=== PATIENT | male | born 1975 | race Caucasian/White ===

== ENCOUNTER 2017-12-02 07:12 | Outpatient (CLI) | payer BC, SELFPAY ==
[2017-12-02 08:14] LABS: Abs Immature Grans 0.01 k/cumm (0.0-0.09); Absolute Basophil Count 0.01 k/cumm (0.0-0.2); Absolute Eosinophil Count 0.08 k/cumm (0.0-0.7); Absolute Lymphocyte Count 2.97 k/cumm (1.2-3.4); Absolute Monocyte Count 1.07 k/cumm (0.11-0.7); Absolute Neutrophil Count 3.34 k/cumm (1.2-6.7); Basophils % 0.1; Eosinophils % 1.1; HCT 45.1 % (40.0-50.0); HGB 14.3 g/dL (13.5-17.5); Immature Grans % 0.1; Lymphocytes % 39.7; Mean Corp. HGB Concentration 31.7 g/dL (32.0-36.0); Mean Corpuscular Hemoglobin 26.8 pg (27.0-33.0); Mean Corpuscular Volume 84.5 fL (80-95); Mean Platelet Volume 10.3 fL (8.0-11.0); Monocytes % 14.3; Neutrophils % 44.7; Platelet Count 288 x1000/uL (130-400); RBC 5.34 m/cumm (4.50-6.00); RBC Distribution Width 13.8 % (11.8-14.1); White Blood Cell Count 7.48 k/cumm (4.4-10.8)
[2017-12-02 08:38] LABS: ALT 35 U/L (12-78); AST 20 U/L (15-37); Albumin 3.6 g/dL (3.4-5.0); Alkaline Phosphatase 139 U/L (46-116); Anion Gap 11.1 mmol/L (3-11); BUN 16 mg/dL (7-18); Bilirubin, Total 0.3 mg/dL (0.2-1.0); CO2 25.9 mmol/L (21.0-32.0); CREATININE 1.19 mg/dL (0.70-1.30); Chloride 104 mmol/L (98-107); Cholesterol 191 mg/dL (50-200); Glucose 116 mg/dL (70-100); HDL Cholesterol 42 mg/dL (40-60); LDL CHOLESTEROL 116 mg/dL (<100); Potassium 4.8 mmol/L (3.5-5.1); Sodium 141 mmol/L (136-145); Total Protein 7.2 g/dL (6.4-8.2); Triglyceride 218 mg/dL (30-150)
[2017-12-02 09:01] LABS: Bilirubin, Direct 0.09 mg/dL (0.00-0.20); Creatine Kinase 179 U/L (39-308)
[2017-12-03 12:50] LABS: Sirolimus 8.2 ng/mL
== END 2017-12-02 07:32 ==
PROVIDERS: PCP Family Medicine; Visit Provider Nurse Practitioner Acute Care
DX: Z94.1 Heart transplant status (principal)
CPT/HCPCS: 36415; 80048; 80061; 80076; 82550; 83721; 80195; 85025

== ENCOUNTER 2018-05-26 10:16 | Outpatient (CLI) | payer BC, SELFPAY ==
--- NOTE | 2018-05-26 08:45 | DI.RAD_ITS ---
SYMPTOM/DIAGNOSIS: COUGH, R05 CHEST X-RAY: Comparison 04/24/14. Heart size is mildly enlarged but stable. Sternal wires are in place. The lungs show no focal consolidating infiltrates, effusions or pneumothoraces. The bones appear intact. IMPRESSION: No acute pulmonary process.
== END 2018-05-26 10:36 ==
PROVIDERS: PCP Family Medicine; Visit Provider Nurse Practitioner Family
DX: R05 Cough (principal); I51.7 Cardiomegaly
CPT/HCPCS: 71046

== ENCOUNTER 2019-07-28 02:31 | Outpatient (CLI) | payer BC, SELFPAY ==
[2019-07-28 08:28] LABS: Abs Immature Grans 0.02 k/cumm (0.0-0.09); Absolute Basophil Count 0.02 k/cumm (0.0-0.2); Absolute Eosinophil Count 0.16 k/cumm (0.0-0.7); Absolute Lymphocyte Count 3.72 k/cumm (1.2-3.4); Absolute Monocyte Count 1.16 k/cumm (0.11-0.7); Absolute Neutrophil Count 5.08 k/cumm (1.2-6.7); Basophils % 0.2; Eosinophils % 1.6; HCT 47.2 % (40.0-50.0); HGB 15.3 g/dL (13.5-17.5); Immature Grans % 0.2 %; Lymphocytes % 36.6; Mean Corp. HGB Concentration 32.4 g/dL (32.0-36.0); Mean Corpuscular Hemoglobin 26.6 pg (27.0-33.0); Mean Corpuscular Volume 82.1 fL (80-95); Mean Platelet Volume 10.1 fL (8.0-11.0); Monocytes % 11.4; Platelet Count 307 x1000/uL (130-400); RBC 5.75 m/cumm (4.50-6.00); RBC Distribution Width 14.6 % (11.8-14.1); White Blood Cell Count 10.16 k/cumm (4.4-10.8)
[2019-07-28 08:46] LABS: Hemoglobin A1C 6.2 % (3.8-5.6)
[2019-07-28 09:43] LABS: ALT 59 U/L (16-63); AST 31 U/L (15-37); Albumin 3.7 g/dL (3.4-5.0); Alkaline Phosphatase 165 U/L (46-116); Anion Gap 8.6 mmol/L (3-11); BUN 20 mg/dL (7-18); Bilirubin, Total 0.4 mg/dL (0.2-1.0); CO2 28.4 mmol/L (21.0-32.0); CREATININE 1.29 mg/dL (0.70-1.30); Calcium 9.6 mg/dL (8.5-10.1); Calculated LDL 113 mg/dL (<100); Chloride 100 mmol/L (98-107); Cholesterol 192 mg/dL (<200); Glucose 128 mg/dL (74-106); HDL Cholesterol 44 mg/dL (40-60); Potassium 4.7 mmol/L (3.5-5.1); Sodium 137 mmol/L (136-145); Total Protein 7.5 g/dL (6.4-8.2); Triglyceride 175 mg/dL (<150)
[2019-07-31 12:09] LABS: Sirolimus 7.7 ng/mL (See Note)
== END 2019-07-28 02:51 ==
PROVIDERS: PCP Family Medicine; Visit Provider Family Medicine
DX: Z94.1 Heart transplant status (principal); E78.5 Hyperlipidemia, unspecified; R73.03 Prediabetes; I10 Essential (primary) hypertension
CPT/HCPCS: 36415; 80053; 80061; 80195; 83036; 85025

== ENCOUNTER 2019-10-17 13:17 | Outpatient (REF) | payer BC, SELFPAY ==
[2019-10-19 15:35] LABS: SARS-CoV-2 RNA Undetected (Undetected); SARS-CoV-2 Specimen Source Nasopharynx
== END 2019-10-17 13:37 ==
LOC: NCHCN 13:17
PROVIDERS: PCP Family Medicine; Visit Provider Nurse Practitioner Family
DX: Z11.59 Encounter for screening for other viral diseases (principal)
CPT/HCPCS: U0003

== ENCOUNTER 2019-10-18 04:02 | Outpatient (CLI) | payer BC, SELFPAY ==
[2019-10-18 11:05] LABS: Abs Immature Grans 0.04 10^3/uL (0.0-0.06); Absolute Basophil Count 0.03 10^3/uL (0.0-0.2); Absolute Eosinophil Count 0.06 10^3/uL (0.0-0.7); Absolute Lymphocyte Count 2.09 10^3/uL (1.2-3.4); Absolute Monocyte Count 0.81 10^3/uL (0.1-0.8); Basophils % 0.3; Eosinophils % 0.6; HCT 44.3 % (40.0-50.0); HGB 14.3 g/dL (13.5-17.5); Immature Grans % 0.4; Lymphocytes % 19.7; MCH 27.1 pg (27.0-33.0); MCHC 32.3 % (32.0-36.0); MCV 83.9 fL (80-95); MPV 10.6 fL (8.0-11.0); Monocytes % 7.6; Neutrophils % 71.4; Nucleated RBC 0 %; Platelet Count 319 10^3/uL (130-400); RBC 5.28 10^6/uL (4.36-5.78); RDW 13.5 % (11.8-14.1); RDW-SD 41.6 fL; WBC 10.63 10^3/uL (4.4-10.8)
[2019-10-18 11:18] LABS: Prothrombin Time 9.9 sec (9.3-11.0)
[2019-10-18 12:02] LABS: ALT 46 U/L (16-63); AST 23 U/L (15-37); Albumin 3.9 g/dL (3.4-5.0); Alkaline Phosphatase 122 U/L (46-116); Anion Gap 8.4 mmol/L (3-11); BUN 19 mg/dL (7-18); Bilirubin, Direct 0.14 mg/dL (0.00-0.20); Bilirubin, Total 0.4 mg/dL (0.2-1.0); CO2 27.6 mmol/L (21.0-32.0); CREATININE 1.17 mg/dL (0.70-1.30); Chloride 102 mmol/L (98-107); Glucose 134 mg/dL (74-106); Potassium 5.1 mmol/L (3.5-5.1); Sodium 138 mmol/L (136-145); Total Protein 7.6 g/dL (6.4-8.2)
[2019-10-18 12:20] LABS: Calculated LDL 103 mg/dL (<100); Cholesterol 174 mg/dL (<200); HDL Cholesterol 50 mg/dL (40-60); Triglyceride 106 mg/dL (<150)
[2019-10-19 12:11] LABS: Sirolimus 6.3 ng/mL (See Note)
== END 2019-10-18 04:22 ==
PROVIDERS: PCP Family Medicine; Visit Provider Family Medicine
DX: Z94.1 Heart transplant status (principal)
CPT/HCPCS: 36415; 80048; 80061; 80076; 80195; 85025; 85610

== ENCOUNTER 2021-02-28 02:36 | Outpatient (CLI) | payer BC, SELFPAY ==
[2021-02-28] MEDS: Normal Saline Flush 10 ML SYR IVP (09:51)
[2021-02-28] MEDS: Normal Saline 500 ML 30 ML IV (09:51)
[2021-02-28 09:58] VITALS: BP 159/98; PULSE 87; RESP 18; TEMP 36.4; O2SAT 98
[2021-02-28 10:01] VITALS: BP 129/84; PULSE 90; RESP 18; TEMP 37.1; O2SAT 96
[2021-02-28 10:22] VITALS: BP 120/83; PULSE 85; RESP 16; TEMP 36.9; O2SAT 95
[2021-02-28 10:46] VITALS: BP 124/84; PULSE 89; RESP 16; TEMP 37; O2SAT 96
[2021-02-28 11:09] VITALS: BP 126/85; PULSE 92; RESP 18; TEMP 36.9; O2SAT 95
== END 2021-02-28 02:37 | disposition home or self-care (01) ==
LOC: INF 02:36
PROVIDERS: PCP Family Medicine; Visit Provider Family Medicine
DX: U07.1 COVID-19 (principal)
CPT/HCPCS: 96365

== ENCOUNTER 2021-06-18 10:54 | Outpatient (REF) | payer BC, SELFPAY ==
[2021-06-18 17:08] LABS: ALT 47 U/L (16-63); AST 27 U/L (15-37); Albumin 3.8 g/dL (3.4-5.0); Alkaline Phosphatase 138 U/L (46-116); Anion Gap 10.2 mmol/L (3-11); BUN 20 mg/dL (7-18); Bilirubin, Total 0.5 mg/dL (0.2-1.0); CO2 26.8 mmol/L (21.0-32.0); Calcium 9.6 mg/dL (8.5-10.1); Calculated LDL 96 mg/dL (<100); Chloride 104 mmol/L (98-107); Cholesterol 181 mg/dL (<200); Glucose 126 mg/dL (74-106); HDL Cholesterol 41 mg/dL (40-60); Potassium 4.2 mmol/L (3.5-5.1); Sodium 141 mmol/L (136-145); Total Protein 7.3 g/dL (6.4-8.2); Triglyceride 223 mg/dL (<150)
[2021-06-19 10:40] LABS: Hepatitis C Ab w Rflx HCV PCR Negative (Negative)
[2021-06-19 11:08] LABS: HIV-1/2 Ag & Ab Screen Negative (Negative)
[2021-06-20 12:51] LABS: Sirolimus 13.8 ng/mL (See Note)
== END 2021-06-18 10:55 | disposition home or self-care (01) ==
LOC: NCHCN 10:54
PROVIDERS: PCP Family Medicine; Visit Provider Family Medicine
DX: E78.5 Hyperlipidemia, unspecified (principal); R73.03 Prediabetes; I10 Essential (primary) hypertension; Z94.1 Heart transplant status; Z11.59 Encounter for screening for other viral diseases; Z11.4 Encounter for screening for human immunodeficiency virus [HIV]
CPT/HCPCS: 80053; 80061; 86803; 87389; 80195

== ENCOUNTER 2021-08-15 15:56 | Outpatient (REF) | payer BC, SELFPAY ==
[2021-08-17 15:42] LABS: COVID-19 RT-PCR UVMMC Result Negative (Negative)
== END 2021-08-15 15:57 | disposition home or self-care (01) ==
LOC: LBN 15:56
PROVIDERS: PCP Family Medicine; Visit Provider Physician Assistant Medical
DX: Z20.822 Contact with and (suspected) exposure to COVID-19 (principal); R09.89 Other specified symptoms and signs involving the circulatory and respiratory systems
CPT/HCPCS: U0003

== ENCOUNTER 2021-10-14 03:26 | Outpatient (CLI) | payer BC, SELFPAY ==
[2021-10-14 08:41] LABS: Abs Immature Grans 0.02 10^3/uL (0.0-0.06); Absolute Basophil Count 0.04 10^3/uL (0.0-0.2); Absolute Lymphocyte Count 3.55 10^3/uL (1.2-3.4); Absolute Monocyte Count 1.29 10^3/uL (0.1-0.8); Absolute Neutrophil Count 4.21 10^3/uL (1.2-6.7); Basophils % 0.4; Eosinophils % 1.1; HCT 44.9 % (40.0-50.0); HGB 14.3 g/dL (13.5-17.5); Immature Grans % 0.2; Lymphocytes % 38.5; MCH 26.8 pg (27.0-33.0); MCHC 31.8 % (32.0-36.0); MCV 84 fL (80-95); MPV 10.2 fL (8.0-11.0); Neutrophils % 45.8; Platelet Count 306 10^3/uL (130-400); RBC 5.33 10^6/uL (4.36-5.78); RDW 13.4 % (11.8-14.1); RDW-SD 41.4 fL; WBC 9.21 10^3/uL (4.4-10.8)
[2021-10-14 08:57] LABS: Prothrombin Time 9.8 sec (9.3-11.0)
[2021-10-14 08:59] LABS: ALT 41 U/L (16-63); AST 21 U/L (15-37); Albumin 3.6 g/dL (3.4-5.0); Alkaline Phosphatase 134 U/L (46-116); Anion Gap 9.1 mmol/L (3-11); BUN 23 mg/dL (7-18); Bilirubin, Total 0.5 mg/dL (0.2-1.0); CO2 24.9 mmol/L (21.0-32.0); CREATININE 1.3 mg/dL (0.70-1.30); Calcium 9.4 mg/dL (8.5-10.1); Calculated LDL 89 mg/dL (<100); Chloride 101 mmol/L (98-107); Cholesterol 201 mg/dL (<200); Estimated GFR 59.97 (mL/min/1.73m2); Glucose 127 mg/dL (74-106); HDL Cholesterol 49 mg/dL (40-60); Potassium 4.5 mmol/L (3.5-5.1); Sodium 135 mmol/L (136-145); Total Protein 7.4 g/dL (6.4-8.2); Triglyceride 319 mg/dL (<150)
[2021-10-14 09:05] LABS: Hemoglobin A1C 6.5 % (<5.7)
[2021-10-14 13:57] LABS: Bilirubin, Direct 0.1 mg/dL (0.0-0.2)
[2021-10-15 12:15] LABS: Sirolimus 9.2 ng/mL (See Note)
== END 2021-10-14 03:27 | disposition home or self-care (01) ==
LOC: LBO 03:27
PROVIDERS: PCP Family Medicine; Visit Provider Family Medicine
DX: I10 Essential (primary) hypertension (principal); E78.5 Hyperlipidemia, unspecified; C64.2 Malignant neoplasm of left kidney, except renal pelvis; Z94.1 Heart transplant status; R73.03 Prediabetes
CPT/HCPCS: 36415; 80048; 80061; 80076; 80195; 83036; 85025; 85610

== ENCOUNTER 2022-09-21 01:40 | Outpatient (CLI) | payer BC, SELFPAY ==
--- NOTE | 2022-09-21 | DI.CT_ITS ---
Exam(s) CT ABDOMEN WO/W EXAM: CT ABDOMEN WO/W CLINICAL HISTORY: RENAL CELL CARCINOMA C64.2. TECHNIQUE: Imaging Protocol: Axial computed tomography images with coronal and sagittal reformatted images were created and reviewed CONTRAST MATERIAL: Intravenous: 100 cc Omnipaque 350 Oral: None COMPARISON: CT CT ABDOMEN/PELVIS (GI) WITH CONTRAST from 10/23/2015 CT ABD/PELVIS WO W CONTRAST from 11/27/2016 FINDINGS: VISUALIZED LUNG BASES: Mild increased markings noted in the anterior basal segment of the left lower lobe.. Sternotomy wires evident. ABDOMEN: There is no ascites. Small hiatal hernia noted. LIVER: Small benign-appearing 4 millimeter hypodensity in the lateral aspect of the right hepatic lob e is probably a tiny cyst or benign hemangioma. No other focal hepatic lesions evident. GALLBLADDER/BILIARY: No obvious gallbladder pathology. CBD is not dilated. PANCREAS: No evidence of pancreatic mass nor dilatation of the pancreatic duct. SPLEEN: Small residual subcapsular hematoma noted. ADRENALS: There are no significant adrenal masses. KIDNEYS:There are multiple cysts in both kidneys noted, these being more prominent and numerous in th e left kidney. Ranging in size up to 5.5 x 4.4 by 4.5 cm. These have significantly increased in siz e and number. These appear to be simple benign cysts. There are no solid renal masses. There is al so a nonobstructive calculus in the upper pole left kidney measuring 3 mm. On the minute delay imagi ng there are no consistent filling defects within the renal pelves.. The infundibulum I are splayed over the larger CIS in the left kidney. There is a single nondilated ureter seen in each side of the abdomen. No duplication evident. Lower ureters are not included in the field of view nor is urinar y bladder. ABDOMINAL AORTA: Abdominal aorta is not enlarged. LYMPH NODES: There is no retroperitoneal nor paraaortic adenopathy. ABDOMINAL WALL: No evidence of significant anterior abdominal wall nor inguinal hernia. GI: There is no evidence of bowel obstruction, free air, nor abscess. OSSEOUS: No fractures. No significant osseous lesions. IMPRESSION: 1. Compared to prior CT scans (most recent being 2016) there has been increase in size and number of benign cysts in left kidney, ranging in size up to 5.5 cm. However, there are no solid lesions seen in the left kidney. Smaller benign cysts are noted in the right kidney. No solid lesions in the rig ht kidney. No adenopathy. 2. Solitary nondilated ureter on each side. No filling defects within the visualized ureters. Pleas e note that the lower ureters and urinary bladder are not included in the field of view of this abdom en only CT study. 3. Other findings as above. RADIATION DOSE DELIVERED: 1,634.76mGy.cm Total DLP DATA REPOSITORY: All CT scans at this facility are submitted to the National Radiology Data Registry (NRDR) Dose Index Registry (DIR) with the [employer] (ACR). RADIATION OPTIMIZATION: All CT scans at this facility use at least one of these dose optimization te chniques: automated exposure control; mA and/or kV adjustment per patient size (includes targeted exa ms where dose is matched to clinical indication); or iterative reconstruction.
[2022-09-21 08:45] LABS: Abs Immature Grans 0.04 10^3/uL (0.0-0.06); Absolute Basophil Count 0.02 10^3/uL (0.0-0.2); Absolute Lymphocyte Count 3.49 10^3/uL (1.2-3.4); Absolute Monocyte Count 0.89 10^3/uL (0.1-0.8); Absolute Neutrophil Count 4.85 10^3/uL (1.2-6.7); Basophils % 0.2; Eosinophils % 1.1; HCT 49.2 % (40.0-50.0); HGB 15.7 g/dL (13.5-17.5); Immature Grans % 0.4; Lymphocytes % 37.2; MCHC 31.9 % (32.0-36.0); MCV 85 fL (80-95); MPV 10.1 fL (8.0-11.0); Monocytes % 9.5; Neutrophils % 51.6; Platelet Count 287 10^3/uL (130-400); RBC 5.81 10^6/uL (4.36-5.78); RDW-SD 42.6 fL; WBC 9.39 10^3/uL (4.4-10.8)
[2022-09-21] MEDS: Normal Saline Flush 10 ML SYR IVP (08:59)
[2022-09-21] MEDS: Omnipaque 350 MG/ML 500 ML BTL-Imaging package IJ (09:03)
[2022-09-21 09:04] LABS: ALT 69 U/L (16-63); AST 38 U/L (15-37); Albumin 3.6 g/dL (3.4-5.0); Alkaline Phosphatase 139 U/L (46-116); Anion Gap 11.3 mmol/L (3-11); BUN 27 mg/dL (7-18); Bilirubin, Total 0.6 mg/dL (0.2-1.0); CO2 23.7 mmol/L (21.0-32.0); CREATININE 1.1 mg/dL (0.70-1.30); Calcium 9.6 mg/dL (8.5-10.1); Calculated LDL 100 mg/dL (<100); Chloride 103 mmol/L (98-107); Cholesterol 192 mg/dL (<200); Estimated GFR 84.37 (mL/min/1.73m2); Glucose 165 mg/dL (74-106); HDL Cholesterol 48 mg/dL (40-60); Magnesium 1.7 mg/dL (1.8-2.4); Potassium 5.2 mmol/L (3.5-5.1); Sodium 138 mmol/L (136-145); Total Protein 7.7 g/dL (6.4-8.2); Triglyceride 220 mg/dL (<150)
[2022-09-21] MEDS: Normal Saline - Diluent 50 ML VIAL IJ (09:04)
[2022-09-21 09:24] LABS: Bilirubin Negative (Negative); Blood Negative (Negative); Clarity Clear (Clear); Glucose Negative (Negative); Ketones Negative (Negative); Leukocyte Esterase Negative (Negative); Nitrite Negative (Negative); Specific Gravity 1.025 (1.005-1.025); Urobilinogen 0.2 mg/dL (Up to 0.2)
[2022-09-21 09:30] LABS: Bacteria Negative HPF (Negative); C & S Indicated? No; Casts 0-2 Hyaline LPF (Negative); Crystals Negative HPF (Negative); Epithelial Cells Rare HPF (Negative); Mucus Negative (Negative); RBC Negative HPF (0-2); WBC Negative HPF (0-5)
[2022-09-21 09:38] LABS: COMMENT (LAB VIEW ONLY) 152.47 mg/dL; PROTEIN 49.6 mg/dL; Prot/Crea Ur Ratio 0.32
[2022-09-23 12:24] LABS: Sirolimus 7.8 ng/mL (See Note)
[2022-09-23 19:02] LABS: Cystatin C, S 1.16 mg/L; eGFR by Cystatin C 68 mL/min/BSA (>60)
== END 2022-09-21 02:00 ==
LOC: DI 01:40
PROVIDERS: Nurse Practitioner; PCP Family Medicine; Visit Provider Family Medicine
DX: C64.2 Malignant neoplasm of left kidney, except renal pelvis (principal); R91.8 Other nonspecific abnormal finding of lung field; K44.9 Diaphragmatic hernia without obstruction or gangrene; K76.89 Other specified diseases of liver; N28.1 Cyst of kidney, acquired; N20.0 Calculus of kidney; Z94.1 Heart transplant status; E78.2 Mixed hyperlipidemia; R79.89 Other specified abnormal findings of blood chemistry; R82.998 Other abnormal findings in urine
CPT/HCPCS: 80053; 80061; 82610; 74170; 80195; 81003; 81015; 82565; 83735; 84156; 85025

== ENCOUNTER 2023-11-08 18:11 | Outpatient (REF) | payer BC, SELFPAY ==
[2023-11-08 20:03] LABS: HCT 47.2 % (40.0-50.0); MCH 26.9 pg (27.0-33.0); MCHC 31.8 % (32.0-36.0); MCV 85 fL (80-95); MPV 11.2 fL (8.0-11.0); Platelet Count 301 10^3/uL (130-400); RBC 5.58 10^6/uL (4.36-5.78); RDW 13.9 % (11.8-14.1); WBC 10.38 10^3/uL (4.4-10.8)
[2023-11-08 20:05] LABS: COMMENT (LAB VIEW ONLY) 240.43 mg/dL; Microalb ug/mg Crea 107.9 ug/mg Cr
[2023-11-08 20:21] LABS: ALT 38 U/L (16-63); AST 22 U/L (15-37); Alkaline Phosphatase 154 U/L (46-116); Anion Gap 14.6 mmol/L (3-11); BUN 24 mg/dL (7-18); Bilirubin, Total 0.39 mg/dL (0.2-1.0); CO2 18.4 mmol/L (21.0-32.0); CREATININE 1.5 mg/dL (0.70-1.30); Calcium 10.1 mg/dL (8.5-10.1); Chloride 104 mmol/L (98-107); Estimated GFR 57.79 (mL/min/1.73m2); FREE T4 1.23 ng/dL (0.76-1.46); Glucose 125 mg/dL (74-106); Sodium 137 mmol/L (136-145); Total Protein 7.8 g/dL (6.4-8.2)
[2023-11-08 20:33] LABS: Calculated LDL 101 mg/dL (<100); Cholesterol 173 mg/dL (<200); HDL Cholesterol 46 mg/dL (40-60); Triglyceride 131 mg/dL (<150)
[2023-11-08 21:08] LABS: Hemoglobin A1C 6.9 % (<5.7)
[2023-11-09 00:01] LABS: TSH 0.85 uIU/Ml (0.36-3.74)
[2023-11-09 19:27] LABS: PSA, Screening 9.6 ng/mL (<=2.5)
== END 2023-11-08 18:12 | disposition home or self-care (01) ==
LOC: NCHCN 18:11
PROVIDERS: PCP Family Medicine; Visit Provider Family Medicine
DX: E11.9 Type 2 diabetes mellitus without complications (principal); Z12.5 Encounter for screening for malignant neoplasm of prostate; Z94.1 Heart transplant status; E78.5 Hyperlipidemia, unspecified
CPT/HCPCS: 80053; 80061; 84153; 85027; 80195; 82043; 82570; 83036; 84439; 84443

== ENCOUNTER 2024-03-01 16:30 | Outpatient (CLI) | payer BC, SELFPAY ==
[2024-03-01 15:55] LABS: Abs Immature Grans 0.02 10^3/uL (0.0-0.06); Absolute Basophil Count 0.02 10^3/uL (0.0-0.2); Absolute Eosinophil Count 0.02 10^3/uL (0.0-0.7); Absolute Lymphocyte Count 2.96 10^3/uL (1.2-3.4); Absolute Monocyte Count 0.89 10^3/uL (0.1-0.8); Absolute Neutrophil Count 6.27 10^3/uL (1.2-6.7); Basophils % 0.2 %; Eosinophils % 0.2 %; HCT 49.5 % (40.0-50.0); HGB 15.4 g/dL (13.5-17.5); Immature Grans % 0.2 %; Lymphocytes % 29.1 %; MCH 26.3 pg (27.0-33.0); MCHC 31.1 % (32.0-36.0); MCV 85 fL (80-95); MPV 9.6 fL (8.0-11.0); Monocytes % 8.7 %; Neutrophils % 61.6 %; Platelet Count 355 10^3/uL (130-400); RBC 5.86 10^6/uL (4.36-5.78); RDW-SD 43.1 fL; WBC 10.18 10^3/uL (4.4-10.8)
[2024-03-01 16:08] LABS: Prothrombin Time 10.1 sec (9.1-11.1)
--- OUTSIDE RECORDS SUMMARY | 2024-03-01 16:32 | XMS_ITS | Encounter Summary ---
Author Organization [facility] [place] [address] Care Team Providers Care Operational Communication Chief Name Role Phone Siri Ram MD Primary Care Provider [phone] Reason for Visit * Reason Onset Date Comments Follow-up 03/25/2020 RHC/LHC Scheduli ng Encounter Details Date Type Department Care Team (Late st Contact Info) Description 03/25/2020 [place] [id number] Mary Edmonds, RN Follow-up (RHC/LHC Scheduling) Social History Tobacco Use Types Packs/Day Years Used Date Smoking Tobacco: Never Smokeless Tobacco: Never Sex and Gender Information Value Date Recorded Sex Assigned at Not on file Gender Identity Not on file Sexual Orientation Not on file documented as of this encounter Miscellaneous Notes * Telephone Encounter - Mary Edmonds, RN - 03/25/2020 3:40 PM ESTSummary: RHC/LHC Scheduling [facility] Care Coordination of Cardiac F/U: History: 44 year old, S/P Transplant 09/2005 [facility] [place] to adri[place]. Last C 11/2016. LVEF 67% Transplant Medications Prednisone Mycophenalate Sirolimus [Goal 6-8] Sirolimus Level 03/22/2020 5mg Daily 500mg BID 1mg Daily 6.3 on 10/16/[address] Nolasco visit plan: Plan: 1. RHC/LHC, ? EMBx pending [facility] preference : ORDER information to [facility] in scheduling, with Dr. Ni. 2. Will discuss role for DSE with [facility] based on their protocol (suspect next year in alternating fashion) 3. Check sirolimus level on day of cath, trough goal 6-8 4. Continue crestor 10mg QD 5. F/u HbA1c given chronic prednisone 6. Will d/w [facility] whether to arrange his other annual follow up here (derm, DEXA, etc) or whether that should be done at [facility] Telephone call with Ruperto: ORDER information to [facility] in scheduling, with Dr. Ni. To relay order to scheduling, and anticipate a call in the next week or so, with aim for schedulingin 1-2 weeks. Plan for Sirolimus level that day also. Has Team Number to call if any questions or concerns. I will be in touch as soon as I learn date/time. documented in this encounter Plan of Treatment Not on file documented as of this encounter Visit Diagnoses Not on filedocumented in this encounter Care Teams Operational Communication Chief Relationship Specialty Start Date End Date Siri Ram MD [address] [place] [address] PCP - General Family Medicine 06/28/15 documented as of this encounter
--- OUTSIDE RECORDS SUMMARY | 2024-03-01 16:32 | XMS_ITS | Encounter Summary ---
Author Organization [facility] Address [facility] [place] [address] Care Team Providers Care Jewelry Coater Name Role Phone Siri Ram MD Primary Care Provider [phone] Reason for Visit * Consultation (Routine) - Specialty Diagnoses / Procedures Referred By Contac t Referred To Contact Cardiology Diagnoses Heart transplant status HX OF HEART TRANSPLANT Siri Ram MD [address] [place] [address] [address] Kristi Breen MD [facility] [place] [address] Referral ID Status Reason Start Date Expiration Date V isits Requested Visits Authorized [id number] Consult, Test & Treat [facility] PCP Updated and/or Approved 11/30/2019 05/29/2020 6 6 Encounter Details Date Type Department Care Team (Late st Contact Info) Description 03/22/2020 10:20 AM EST Office Visit Cardiology at [address] [address] Kristi Breen MD History of heart transplant (Primary Dx) Social History Tobacco Use Types Packs/Day Years Used Date Smoking Tobacco: Never Smokeless Tobacco: Never Sex and Gender Information Value Date Recorded Sex Assigned at Not on file Gender Identity Not on file Sexual Orientation Not on file documented as of this encounter Last Filed Vital Signs Vital Sign Reading Time Taken Comments Blood Pressure 122/74 03/22/2020 10:26 AM EST Pulse 88 03/22/2020 10:26 AM EST Temperature - - Respiratory Rate - - Oxygen Saturation 98% 03/22/2020 10:26 AM EST Inhaled Oxygen Concentration - - Weight 101 kg (222 lb 9.6 oz) 03/22/2020 10:26 A M EST Height 180.3 cm (5' 11) 03/22/2020 10:26 AM EST Body Mass Index 31.05 03/22/2020 10:26 AM EST documented in this encounter Progress Notes * Kristi Breen MD - 03/22/2020 10:20 AM EST [facility] Note Name: Ruperto Ellis Date: 03/22/2020 Chief Complaint: s/p OHT History of Present Illness 44 y.o. 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 He is 14 years post transplant and presents today to establish care. He was scheduled for coronary angiogram in 12/02 at [facility], but this has been postponed due to concernsregarding coronavirus. 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 His last DSE was done in November 2017 demonstrated normal graft function with LVEF of 67% and no segmental wall motion abnormalities. He had normal wall thickness with no segmental wall abnormalities. RVSF unable to be calculated. With peak stress, he had no new wall motion abnormalities or evidence of ischemic changes. His last coronary angiogram from November 2016 was with stable coronaries, he has a mid RCA focal 25% stenosis in the mid third. Previous to this coronary angiogram, his coronaries had been clean and there was no evidence of disease. He has had no recent biopsies as he is >5 years out from transplant. 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 He denies s/sx of HF. He deniesLH/dizziness or palps c/f arrhythmia. He is NYHA I-II and euvolemic. He denies any recent infectious symptoms and is practicing COVID precautions. Review of Systems All other 12 point review of systems negative except as noted above. 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 mycophenolate (CELLCEPT) 500 mg Tablet Take 500 mg by mouth 2 times daily. ??? omeprazole (PriLOSEC) 40 mg Capsule, Delayed Release(E.C.) Take 40 mg by mouth daily. ??? prazosin (Minipress) 2 mg Capsule Take 2 mg by mouth 3 times daily. ??? carvediloL (Coreg) 25 mg Tablet Take 25 mg by mouth 2 times daily. ??? sirolimus (Rapamune) 1 mg Tablet Take 1 mg by mouth daily. ??? predniSONE (Deltasone) 5 mg Tablet Take 5 mg by mouth daily. ??? rosuvastatin (Crestor) 10 mg Tablet Take 10 mg by mouth daily. Allergies Allergies Allergen Reactions ??? Amiodarone Anaphylaxis and Other (See Comments) see comment; allergic to IV version only, tolerates PO; Social & Family History TOB: Social History Tobacco Use Smoking Status Never Smoker Smokeless Tobacco Never Used ETOH: Social History Substance and Sexual Activity Alcohol Use None 03/22/2020 Illicits: Social History Substance and Sexual Activity Drug Use Not on file FHx: No family history on file. Physical Exam Vitals: 03/22/20 1026 BP: 122/74 Pulse: 88 SpO2: 98% Weight: 101 kg (222 lb 9.6 oz) Height: 180.3 cm (5' 11) General: NAD Neck: JVP not elevated Cardiac: RRR w/o mrg Lungs: CTAB Abdomen: Soft NT/ND Extremities: WWP w/ no sig LE edema Relevant Labs WBC 11, HCT 46, PLT 252 K 4.1, Cre 1.08 INR 1.0 LFT WNL LDL 96 Relevant CardiacStudies NSR at a rate of 87, QRS 82, QTC 413, R axis, RSR' pattern Assessment: Ruperto Ellis is a 44 y.o. male with a past medical history of OHT in 2005 c/b RCC requiring partial nephrectomy now on pred 5, cellcept 500mg BID and sirolimus 1mg PO QD with a goal 6-8 who presents to the advanced heart disease clinic to establish care. He would like to continue to see [facility] for his annual transplant testing and visits but does not wantto go down now d/t COVID. We will arrange a RHC/LHC for him here. I do not think he will need a biopsy, but the patient thinks he might, so I will reach out to [facility]. I cannot find a medial reaons why he would need one at this point but happy to reach out and ask. Will check his sirolimus level on the day of cath. Will TBW [facility] and see if they want a repeat DSE now or in future. His last was in 2017 as best I cantell from the [facility] records. Otherwise, he is doing well. His lipids are well controlled on crestor 10mg QD. He will need annualderm and DEXA given that he remains on prednisone. I will coordinate with [facility] and see if it makes sense for him to get those things here or there. Plan: 1. RHC/LHC, ? EMBx pending [facility] preference 2. Will discuss role for DSE with [facility] based on their protocol (suspect next year in alternating fashion) 3. Check sirolimus level on day of cath, trough goal 6-8 4. Continue crestor 10mg QD 5. F/u HbA1c given chronic prednisone 6. Will d/w [facility] whether to arrange his other annual follow up here (derm, DEXA, etc) or whether that should be done at [facility] RTC in 12 months with transplant labs This clinic visit lasted 35 minutes, of which 30 minutes were spent in direct discussion and counseling with the patient. Kristi Nolasco MD MPH Advanced [facility] Disease [facility] Cardiac Transplant Attending 03/22/2020, 2:49 PM documented in this encounter Plan of Treatment Not on file documented as of this encounter Procedures Procedure Name Priority Date/Time Associated Diagnosis Comments EKG 12-LEAD Routine 03/22/2020 10:20 AM EST History of heart transplant documented in this encounter Results * EKG 12 Lead (03/22/2020 10:20 AM EST) Ventricular rate 87 BPM MUSE SYSTEM Atrial Rate 87 BPM MUSE SYSTEM P-R Interval 174 ms MUSE SYSTEM QRS Duration 82 ms MUSE SYSTEM Q-T Interval 344 ms MUSE SYSTEM QTC Calculated (Bezet) 413 ms MUSE SYSTEM Calculated P Lequire 13 degrees MUSE SYSTEM Calculated R Lequire 91 degrees MUSE SYSTEM Calculated T Lequire 79 degrees MUSE SYSTEM INTERPRETATION Normal sinus rhythm Rightward axis RSR' or QR pattern in V1 suggests right ventricular conduction delay Borderline ECG When compared with ECG of 11-JUN-2005 18:33, Sinus rhythm has replaced Electronic ventricular pacemaker Confirmed by MD Bear Daniel ([id number]) on 03/22/2020 3:37:35 PM MUSE SYSTEM 03/22/2020 10:2 0 AM EST 03/22/2020 3:37 PM EST Kristi Burr MD ECG ORDERABL ES MUSE SYSTEM * (ABNORMAL) Hemoglobin A1c (03/22/2020 9:44 AM EST) Hemoglobin A1c 6.6(H) 4.3 - 5.6 % [facility] Comment: Reference Range: 4.3 - 5.6% 5.7 - 6.4% - Increased Risk of Developing Diabetes Mellitus >= 6.5% - Consistent with diagnosis of Diabetes Mellitus In the absence of hyperglycemia (i.e. plasma glucose > 200 mg/dL) or classic symptoms of hyperglycemia a repeat measurement of HbA1c should be performed on a separate sample to confirm the diagnosis. Diagnosis and Classification of Diabetes Mellitus, Diabetes Care 2013; 36: Suppl. 1, Y98-81 Estimated Average Glucose 142 mg/dL [facility] Comment: eAG equivalents for HbA1c percentages: HbA1c(%) ?eAG(mg/dL) 6.0 ?126 6.5 ?140 7.0 ?154 7.5 ?169 8.0 ?183 8.5 ?197 9.0 ?212 9.5 ?226 10.0 ? 240 Limitations: The eAG calculation has not been validated on women, individuals below 18 years old and above 70 years old, and individuals with hemoglobinopathies. Additional resources are available on the ADA website. Anders DREW, Magda J, Giselle R, et al. ??Translating the A1C assay into estimated average glucose values. ??Diabetes Care 2008:31(8):0419-8592. Blood specimen (specimen) 03/22/2020 9:44 AM EST 03/22/2020 11:03 AM EST Narrative Resulting Agency Comment Spec In Lab Kristi Burr MD CHEMISTRY OR DERABLES [facility] [place] [address] * Prothrombin Time (03/22/2020 9:44 AM EST) Prothrombin Time 11.3 9.4 - 12.[address] [facility] International Normalization Ratio 1.0 [facility] Comment: An INR <2.0 indicates adequate procoagulant activity for hemostasis in most patients without underlying bleeding disorders, though the INR may not adequately reflect hemostatic capacity in patients with liver disease and synthetic impairment. The recommended target INR range for therapeutic anticoagulation is 2.0 ? 3.0 for most applications, though lower and higher ranges may be appropriate depending on clinical circumstances. Blood specimen (specimen) 03/22/2020 9:44 AM EST 03/22/2020 11:03 AM EST Narrative Resulting Agency Comment Spec In Lab Kristi Burr MD HEMATOLOGY O RDERABLES [facility] [place] [address] * (ABNORMAL) Digoxin level (03/22/2020 9:44 AM EST) Digoxin <0.3(L) 0.9 - 2.0 mcg/L [facility] Blood specimen (specimen) 03/22/2020 9:44 AM EST 03/22/2020 11:03 AM EST Narrative Resulting Agency Comment Spec In Lab Kristi Burr MD CHEMISTRY OR DERABLES Performing Organization Address [facility]/ZIP Co de Phone Number [facility] [place] [address] * Tacrolimus level (03/22/2020 9:44 AM EST) Tacrolimus <0.8 ng/mL [facility] Comment: Please be advised that as of 03/19/2020 the methodology for tacrolimus testing has changed from a liquid chromatography tandem mass spectrometry platform to an electrochemiluminescence immunoassay format. Less than sign not attached to original result. Please be advised that as of 03/19/2020 the methodology for tacrolimus testing has changed from a liquid chromatography tandem mass spectrometry platform to an electrochemiluminescence immunoassay format. Corrected from 0.8 ng/ml [NA] on 06/14/20 17:17:53 EDT by Sylwia Rondon Blood specimen (specimen) 03/22/2020 9:44 AM EST 03/22/2020 11:03 AM EST Narrative Resulting Agency Comment Spec In Lab Kristi Burr MD CHEMISTRY OR DERABLES Performing Organization Address City/[facility]/ZIP Co de Phone Number [facility] [place] [address] * TSH [place] (03/22/2020 9:44 AM EST) Thyroid Stimulating Hormone 0.94 0.27 - 4.20 mcIU/mL [facility] Blood specimen (specimen) 03/22/2020 9:44 AM EST 03/22/2020 11:03 AM EST Narrative Resulting Agency Comment Spec In Lab Kristi Burr MD CHEMISTRY OR DERABLES [facility] [place] [address] * Lipid Panel (Reflex Direct LDL) (03/22/2020 9:44 AM EST) Cholesterol, Total 180 mg/dL [facility] Comment: Lower Risk: <200 mg/dL Average Risk: 200-239 mg/dL Higher Risk: >ix=707 mg/dL Triglyceride 226 mg/dL [facility] Comment: Average Risk/Lower Risk: <150 mg/dL Borderline High Risk: 150-199 mg/dL High Risk: 200-499 mg/dL Very High Risk: >ix=710 mg/dL HDL Cholesterol 39 mg/dL [facility] Comment: Males: ?? Higher Risk: <40 mg/dL Females: ?? HIgher Risk: <50 mg/dL LDL Cholesterol 96 mg/dL [facility] Comment: Lowest Risk: <100 mg/dL Lower Risk: 100-129 mg/dL Borderline High Risk: 130-159 mg/dL High Risk: 160-189 mg/dL Very High Risk: >na=962 mg/dL Cholesterol/HDL Ratio 4.[address] [facility] Lipid Interpretation See Note [facility] Comment: Lipid management should be guided by a patient? s ASCVD risk, goals and preferences. ACC/AHA Guidelines recommend high intensity statin if clinical ASCVD or LDL greater than or equal to 190 mg/dL. http://tinyurl.com/UVW-UMM-Qxyodtfal Adults aged 40-75 with LDL 70-189 mg/dL should have their 10 year ASCVD risk estimated with the ACC/AHA ASCVD risk collet gluer http://tools.acc.org/OFNMS-Kycx-Ktmlfwubd/ Statin should be discussed if risk greater than or equal to 7.5% in non-diabetics. With diabetes, moderate intensity statin is recommended if risk less than 7.5%, high intensity if risk greater than or equal to 7.5%. Annual lipid monitoring on statins is not necessary. Evaluate secondary causes of Triglycerides greater than 500 mg/dL or LDL greater than 190 mg/dL: See table 6 of ACC/AHA Guideline. Lifestyle modification is a critical component of ASCVD risk reduction. Blood specimen (specimen) 03/22/2020 9:44 AM EST 03/22/2020 11:03 AM EST Narrative Resulting Agency Comment Spec In Lab Kristi Burr MD CHEMISTRY OR DERABLES Performing Organization Address [facility] Co de Phone Number [facility] [place] [address] * Hepatic Function Panel (03/22/2020 9:44 AM EST) [facility] Protein, Total 7.3 6.1 - 8.0 gm/dL [facility] Albumin 4.3 3.2 - 5.2 gm/dL [facility] Aspartate Aminotransferase 22 0 - 39 unit/L [facility] Alanine Aminotransferase 34 0 - 55 unit/L [facility] Alkaline Phosphatase 129 40 - 130 unit/L [facility] Bilirubin, Total 0.5 0.2 - 1.3 mg/dL [facility] Bilirubin, Direct 0.1 0.0 - 0.3 mg/dL [facility] Blood specimen (specimen) 03/22/2020 9:44 AM EST 03/22/2020 11:03 AM EST Narrative Resulting Agency Comment Spec In Lab Kristi Burr MD CHEMISTRY OR DERABLES Performing Organization Address [facility] Co de Phone Number [facility] [place] [address] * Basic Metabolic Panel (non-fasting) (03/22/2020 9:44 AM EST) Glucose 161 65 - 199 mg/dL [facility] Comment:Diabetes: >=200 mg/d L plus symptoms Blood Urea Nitrogen 16 10 - 20 mg/dL [facility] Creatinine 1.08 0.80 - 1.50 mg/dL [facility] Sodium 137 135 - 145 mmol/L [facility] Potassium 4.1 3.5 - 5.0 mmol/L [facility] Comment: Please note: ??Patients with WBC >100,000 may have falsely elevated Potassium levels. ??For accurate Potassium quantification in these patients send serum separator tube (gold top) for subsequent determinations. ??Contact the Clinical Chemistry Laboratory if there are any questions. Chloride 102 98 - 107 mmol/L [facility] Carbon Dioxide 23 22 - 31 mmol/L [facility] Anion Gap 12 5 - 15 mmol/L [facility] Calcium 9.8 8.5 - 10.5 mg/dL [facility] Est Glomerular Filtration Rate 84 >=60 mL/min/1. 73 m?? [facility] Comment: This patient? s estimated glomerular filtration rate (eGFR) is between 84 mL/min/1.73 m2 (patients with less muscle mass per kg body weight) and 98 mL/min/1.73 m2 (patients with more muscle mass per kg body weight) as determined by the CKD-EPI equation. Assessment of eGFR is not appropriate when creatinine concentrations are rapidly changing. For clinical decisions where creatinine clearance will affect therapy, a 24-hour urine creatinine clearance may be advised. Assignment of CKD stage 1 ? 5 for patients with an eGFR near the transition point between stages may be based on clinical assessment of muscle mass and symptoms in addition to eGFR. Blood specimen (specimen) 03/22/2020 9:44 AM EST 03/22/2020 11:03 AM EST Narrative Resulting Agency Comment Spec In Lab Kristi Burr MD CHEMISTRY OR DERABLES [facility] [place] [address] documented in this encounter Visit Diagnoses Diagnosis History of heart transplant- Primary Heart replaced by transplant documented in this encounter Care Teams Jewelry Coater Relationship Specialty Start Date End Date Siri Ram MD Peg [address] [facility] [address] [place] [address] PCP - General Family Medicine 06/28/15 documented as of this encounter
--- OUTSIDE RECORDS SUMMARY | 2024-03-01 16:32 | XMS_ITS | Encounter Summary ---
[place] [address] Care Team Providers Care Medicaid Nurse Name Role Phone Siri Ram MD Primary Care Provider [phone] Encounter Details Date Type Department Care Team (Latest Contact Info) Description 03/22/2020 9:20 AM EST Laboratory Appointment Lab [address] [place] [address] History of heart transplant Social History Tobacco Use Types Packs/Day Years Used Date Smoking Tobacco: Never Smokeless Tobacco: Never Sex and Gender Information Value Date Recorded Sex Assigned at Not on file Gender Identity Not on file Sexual Orientation Not on file documented as of this encounter Plan of Treatment Not on file documented as of this encounter Procedures Procedure Name Priority Date/Time Associated Diagnosis Comments HC THYROID STIMULATING HORMONE, SERUM STAT 03/22/2020 9:44 AM EST History of heart transplant HEMOGRAM STAT 03/22/2020 9:44 AM EST History of heart transplant DIFFERENTIAL, AUTOMATED STAT 03/22/2020 9:44 AM EST History of heart transplant HC [id number] (TACROLIMUS) STAT 03/22/2020 9:44 AM EST History of heart transplant HC PROTHROMBIN TIME STAT 03/22/2020 9 :44 AM EST History of heart transplant HC CBC,PLT & AUTO DIFF STAT 03/22/2020 9:44 AM EST History of heart transplant HC HEMOGLOBIN A1C STAT 03/22/2020 9:4 4 AM EST History of heart transplant HC DIGOXIN, SERUM STAT 03/22/2020 9:4 4 AM EST History of heart transplant HEPATIC FUNCTION PANEL STAT 03/22/2020 9:44 AM EST History of heart transplant HC VENIPUNCTURE Routine 03/22/2020 9:44 AM EST History of heart transplant BASIC METABOLIC PANEL STAT 03/22/2020 9:44 AM EST History of heart transplant documented in this encounter Results * (ABNORMAL) Differential, Automated (03/22/2020 9:44 AM EST) Neutrophil % 70.0 % [facility] Neutrophil Absolute 7.83(H) 1.70 - 6.10 x10(3)/mc L [facility] Lymph % 21.3 % [facility] Lymphocytes Abs 2.4 0.9 - 3.2 x10(3)/mc L [facility] Monocyte % 7.5 % [facility] Monocyte Abs 0.8 0.3 - 0.9 x10(3)/mc L [facility] Eos % 0.6 % [facility] Eosinophils Abs 0.1 0.0 - 0.4 x10(3)/mc L [facility] Basophil % 0.2 % [facility] Baso Absolute 0.0 0.0 - 0.1 x10(3)/mc L [facility] Immature Gran % 0.40 % [facility] Comment: Immature granulocytes(IG's)percentage and absolute count will include metamyelocytes, myelocytes, and promyelocytes. Blood smears from CBCs yielding IG's will be scanned manually for concordance. If this scan disagrees with the automated IG or if promyelocytes are noted, a manual differential will be performed. Immature Gran Absolute 0.05(H) 0.00 - 0.04 x10(3)/ L [facility] Blood specimen (specimen) 03/22/2020 9:44 AM EST 03/22/2020 11:03 AM EST Narrative Resulting Agency Comment Spec In Lab Kristi Burr MD HEMATOLOGY O RDERABLES [facility] [place] [address] * (ABNORMAL) Hemogram (03/22/2020 9:44 AM EST) White Blood Cell 11.2(H) 4.0 - 9.5 x10(3)/[facility] Red Blood Cell 5.55(H) 4.58 - 5.54 x10(6)/[facility] Hemoglobin 14.7 13.7 - 16.5 gm/dL [facility] Hematocrit 45.9 40.5 - 48.5 % [facility] Mean Cell Volume 82.7(L) 82.9 - 93.1 fL [facility] Mean Cell Hemoglobin 26.5(L) 27.5 - 32.1 pg [facility] Mean Cell Hemoglobin Concentration 32.0 32.0 - 35.7 gm/dL [facility] Platelet 252 145 - 357 x10(3)/[facility] RDW Standard Deviation 40.8 36.0 - 45.0 [facility] RDW coefficient of variation 13.5 11.4 - 13.8 % [facility] Mean Platelet Volume 10.5 7.6 - 12.9 [facility] NRBC% auto 0.0 % [facility] NRBC Absolute 0.000 0.000 - 0.000 x10(3)/[facility] Blood specimen (specimen) 03/22/2020 9:44 AM EST 03/22/2020 11:03 AM EST Narrative Resulting Agency Comment Spec In Lab Kristi Burr MD HEMATOLOGY O RDERABLES [facility] [place] [address] * Basic Metabolic Panel (non-fasting) (03/22/2020 9:44 AM EST) Glucose 161 65 - 199 mg/dL [facility] Comment:Diabetes: >=200 mg/d L plus symptoms Blood Urea Nitrogen 16 10 - 20 mg/dL [facility] Creatinine 1.08 0.80 - 1.50 mg/dL [facility] Sodium 137 135 - 145 mmol/L [facility] Potassium 4.1 3.5 - 5.0 mmol/L [facility] Comment: Please note: ??Patients with WBC >100,000 may have falsely elevated Potassium levels. ??For accurate Potassium quantification in these patients send serum separator tube (gold top) for subsequent determinations. ??Contact the Clinical Chemistry Laboratory if there are any questions. Chloride 102 98 - 107 mmol/L [facility] Carbon Dioxide 23 22 - 31 mmol/L [facility] Anion Gap 12 5 - 15 mmol/L [facility] Calcium 9.8 8.5 - 10.5 mg/dL [facility] Est Glomerular Filtration Rate 84 >=60 mL/min/1. 73 m?? [facility] Comment: This patient? s estimated [...] MD CHEMISTRY OR DERABLES Performing Organization Address [facility] Co de Phone Number [facility] [place] [address] * Hepatic Function Panel (03/22/2020 9:44 AM EST) Protein, Total 7.3 6.1 - 8.0 gm/dL [facility] Albumin 4.3 3.2 - 5.2 gm/dL [facility] Aspartate Aminotransferase 22 0 - 39 unit/L [facility] Alanine Aminotransferase 34 0 - 55 unit/L [facility] Alkaline Phosphatase 129 40 - 130 unit/L [facility] Bilirubin, Total 0.5 0.2 - 1.3 mg/dL [facility] Bilirubin, Direct 0.1 0.0 - 0.3 mg/dL [facility] Blood specimen (specimen) 03/22/2020 9:44 AM EST 03/22/2020 11:03 AM EST Narrative Resulting Agency Comment Spec In Lab Kristi Burr MD CHEMISTRY OR DERABLES Performing Organization Address [facility] Co de Phone Number [facility] [place] [address] * Lipid Panel (Reflex Direct LDL) (03/22/2020 9:44 AM EST) Cholesterol, Total 180 mg/dL [facility] Comment: Lower Risk: <200 mg/dL Average Risk: 200-239 mg/dL Higher Risk: >mv=611 mg/dL Triglyceride 226 mg/dL [facility] Comment: Average Risk/Lower Risk: <150 mg/dL Borderline High Risk: 150-199 mg/dL High Risk: 200-499 mg/dL Very High Risk: >yu=113 mg/dL HDL Cholesterol 39 mg/dL [facility] Comment: Males: ?? Higher Risk: <40 mg/dL Females: ?? HIgher Risk: <50 mg/dL LDL Cholesterol 96 mg/dL [facility] Comment: Lowest Risk: <100 mg/dL Lower Risk: 100-129 mg/dL Borderline High Risk: 130-159 mg/dL High Risk: 160-189 mg/dL Very High Risk: >in=436 mg/dL Cholesterol/HDL Ratio 4.6 ratio [facility] Lipid Interpretation See Note [facility] Comment: Lipid management should be guided by a patient? s ASCVD risk, goals and preferences. ACC/AHA Guidelines recommend high intensity statin if clinical ASCVD or LDL greater than or equal to 190 mg/dL. [email or web address]-[email or web address] Adults aged 40-75 with LDL 70-189 mg/dL should have their 10 year ASCVD risk estimated with the ACC/AHA ASCVD risk acid patroller http://tools.acc.org/NDKFC-Mnav-Mrflrnehp/ Statin should be discussed if risk greater [...] Lab Kristi Burr MD CHEMISTRY OR DERABLES [facility] [place] [address] * TSH [place] (03/22/2020 9:44 AM EST) Thyroid Stimulating Hormone 0.94 0.27 - 4.20 mcIU/mL [facility] Blood specimen (specimen) 03/22/2020 9:44 AM EST 03/22/2020 11:03 AM EST Narrative Resulting Agency Comment Spec In Lab Kristi Burr MD CHEMISTRY OR DERABLES Performing Organization Address [facility] Co de Phone Number [facility] [place] [address] * Tacrolimus level (03/22/2020 9:44 AM EST) Tacrolimus <0.8 ng/mL [facility] Comment: Please be advised that [...] MD CHEMISTRY OR DERABLES Performing Organization Address [facility] Co de Phone Number [facility] [place] [address] * (ABNORMAL) Digoxin level (03/22/2020 9:44 AM EST) Digoxin <0.3(L) 0.9 - 2.0 mcg/L [facility] Blood specimen (specimen) 03/22/2020 9:44 AM EST 03/22/2020 11:03 AM EST Narrative Resulting Agency Comment Spec In Lab Kristi Burr MD CHEMISTRY OR DERABLES Performing Organization Address [facility] de Phone Number [facility] [place] [address] * Prothrombin Time (03/22/2020 9:44 AM EST) Pathologist [facility] Prothrombin Time 11.3 9.4 - 12.5 sec [facility] International Normalization Ratio 1.0 [facility] Comment: An INR <2.0 indicates [...] Lab Kristi Burr MD HEMATOLOGY O RDERABLES Performing Organization Address [facility] de Phone Number [facility] [place] [address] * (ABNORMAL) Hemoglobin A1c (03/22/2020 9:44 AM EST) Pathologist [facility] Hemoglobin A1c 6.6(H) 4.3 - 5.6 % [facility] Comment: Reference Range: 4.3 - [...] Mellitus, Diabetes Care 2013; 36: Suppl. 1, S67-74 Estimated Average Glucose 142 mg/dL [facility] Comment: eAG equivalents for HbA1c [...] into estimated average glucose values. ??Diabetes Care 2008:31(8):6381-4255. Blood specimen (specimen) 03/22/2020 9:44 AM EST 03/22/2020 11:03 AM EST Narrative Resulting Agency Comment Spec In Lab Kristi Burr MD CHEMISTRY OR DERABLES Performing Organization Address City/State/[facility] Co de Phone Number [facility] [place] [address] documented in this encounter Visit Diagnoses Diagnosis History of heart transplant Heart replaced by transplant documented in this encounter Care Teams Medicaid Nurse Relationship Specialty Start Date End Date Siri Ram MD [address] [place] [address] PCP - General Family Medicine 06/28/15 documented as of this encounter
--- OUTSIDE RECORDS SUMMARY | 2024-03-01 16:32 | XMS_ITS | Encounter Summary ---
Author Organization [facility] Address [address] [place] [address] Care Team Providers Care Product Delivery Specialist Name Role Phone Gil Schwartz MD Primary Care Provider [phone] Encounter Details Date Type Department Care Team (Late st Contact Info) Description 08/15/2021 Lab Requisition [facility] Pathology & Laboratory Medicine - [address] [address] Outr Resulting Lab, Provider Social History Tobacco Use Types Packs/Day Years Used Date Smoking Tobacco: Never Assessed Sex and Gender Information Value Date Recorded Sex Assigned at Not on file Legal Sex Male 18:34 EST Gender Identity Not on file Sexual Orientation Not on file documented as of this encounter Plan of Treatment Not on file documented as of this encounter Procedures Procedure Name Priority Date/Time Associated Diagnosis Comments ZZCOVID-19 TEST [facility] PCR Today 08/15/2021 15:40 EDT COVID-19 TESTING Routine 08/15/2021 15:4 0 EDT documented in this encounter Results * COVID-19 TEST [facility] PCR (08/15/2021 15:40 EDT) Swab 08/15/2021 15:4 0 EDT 08/16/2021 21:31 EDT us Provider Outr Resulting Lab MICROBIOLOGY - GENER AL ORDERABLES Final Result [facility] [address] [place] [address] * COVID-19 TESTING (08/15/2021 15:40 EDT) COVID-19 rt-PCR Result Negative Negative 08/17/2021 15:37 EDT [facility] Comment: This test has not been FDA cleared or approved. This test has been authorized by FDA under an EUA for use by authorized laboratories. This test has been authorized only for detection of nucleic acid from 2019-nCoV, not for any other viruses or pathogens. This test is only authorized for the duration of the declaration that circumstances exist justifying the authorization of emergency use of in vitro diagnostic tests for detection and/or diagnosis of 2019-nCoV under section 564(b)(1) of Act, 21 U.S.C ?? 360bbb-3(b) (1), unless the authorization is terminated or revoked sooner. Negative results do not preclude 2019-nCoV infection and should not be used as the sole basis for treatment or other patient management decisions. Negative results must be combined with clinical observations, patient history, and epidemiological information. Testing was performed using the yanelis SARS-CoV-2 assay ([employer] on the Yanelis 6800 System Performing Lab Yanelis [address] [facility] Lab 08/17/2021 15:37 EDT [facility] Swab 08/15/2021 15:4 0 EDT 08/16/2021 21:31 EDT us Provider Outr Resulting Lab MICROBIOLOGY - GENER AL ORDERABLES Final Result [facility] [address] [place] [address] documented in this encounter Visit Diagnoses Not on filedocumented in this encounter Care Teams Product Delivery Specialist Relationship Specialty Start Date End Date Gil Schwartz MD PCP - General 01/23/15 documented as of this encounter
--- OUTSIDE RECORDS SUMMARY | 2024-03-01 16:32 | XMS_ITS | Referral Summary ---
Author Organization [facility] Address [address] [place] [address] Care Team Providers Care Automotive Sales Professional Name Role Phone Gil Schwartz MD Primary Care Provider [phone] Social History Tobacco Use Types Packs/Day Years Used Date Smoking Tobacco: Never Assessed Sex and Gender Information Value Date Recorded Sex Assigned at Not on file Legal Sex Male 18:34 EST Gender Identity Not on file Sexual Orientation Not on file Plan of Treatment Not on file Procedures Procedure Name Priority Date/Time Associated Diagnosis Comments HEPATITIS C AB W REFLEX TO HCV RNA BY PCR Routine 06/18/2021 8:49 EDT from Last 3 Months or Most Recently Relevant to Health Maintenance Results * HEPATITIS C AB W REFLEX TO HCV RNA BY PCR (06/18/2021 8:49 EDT) Hep C Antibody Negative Negative 06/19/2021 10:35 EDT [facility] Blood VENOUS BLOOD / Unknown 06/18/2021 8:49 EDT 06/18/2021 21:20 EDT us Provider Outr Resulting Lab CHEMISTRY & BLOOD GA S ORDERABLES Final Result [facility] [address] [place] [address] from Last 3 Months or Most Recently Relevant to Health Maintenance Care Teams Automotive Sales Professional Relationship Specialty Start Date End Date Gil Schwartz MD PCP - General 01/23/15
--- OUTSIDE RECORDS SUMMARY | 2024-03-01 16:32 | XMS_ITS | Encounter Summary ---
Author Organization [facility] Address [address] [place] [address] Care Team Providers Care Rigging Up Worker Name Role Phone Gil Schwartz MD Primary Care Provider [phone] Encounter Details Date Type Department Care Team (Late st Contact Info) Description 10/14/2021 Lab Requisition [facility] Pathology & Laboratory Medicine - [facility] [address] [place] [address] Outr Resulting Lab, Provider Social History Tobacco [...] Procedure Name Priority Date/Time Associated Diagnosis Comments SIROLIMUS Routine 10/14/2021 8:23 EDT documented in this encounter Results * SIROLIMUS (10/14/2021 8:23 EDT) Sirolimus 9.2 See Note ng/mL 10/15/2021 12:11 EDT [facility] Comment: NOTE: Sirolimus Therapeutic Range: 4-10 ng/mL (The goal level is based on clinical context). Assayed utilizing [employer]rose Chemiluminescent technology. ??Values obtained using different assay methods cannot be used interchangeably. Blood VENOUS BLOOD / Unknown 10/14/2021 8:23 EDT 10/14/2021 16:58 EDT us Provider Outr Resulting Lab CHEMISTRY & BLOOD GA S ORDERABLES Final Result [facility] [address] [place] [address] documented in this encounter Visit Diagnoses Not on filedocumented in this encounter Care Teams Rigging Up Worker Relationship Specialty Start Date End Date Gil Schwartz MD PCP - General 01/23/15 documented as of this encounter
--- OUTSIDE RECORDS SUMMARY | 2024-03-01 16:32 | XMS_ITS | Encounter Summary ---
Author Organization [facility] Address [address] [place] [address] Care Team Providers Care Education And Outreach Coordinator Name Role Phone Gil Schwartz MD Primary Care Provider [phone] Encounter Details Date Type Department Care Team (Late st Contact Info) Description 06/18/2021 Lab Requisition [facility] Pathology & Laboratory Medicine - [facility] [address] [place] [address] Outr Resulting Lab, Provider Social History Tobacco [...] Priority Date/Time Associated Diagnosis Comments SIROLIMUS Routine 06/18/2021 8:49 EDT HEPATITIS C AB W REFLEX TO HCV RNA BY PCR Routine 06/18/2021 8:49 EDT documented in this encounter Results * SIROLIMUS (06/18/2021 8:49 EDT) Sirolimus 13.8 See Note ng/mL 06/20/2021 12:45 EDT [facility] Comment: NOTE: Therapeutic range is dependent on the clinical situation. Assayed utilizing [employer]rose Chemiluminescent technology. ??Values obtained using different assay methods cannot be used interchangeably. Blood VENOUS BLOOD / Unknown 06/18/2021 8:49 EDT 06/18/2021 21:20 EDT us Provider Outr Resulting Lab CHEMISTRY & BLOOD GA S ORDERABLES Final Result Performing Organization Address City/[facility] [address]/[facility] Co de Phone Number [facility] [address] [place] [address] * HEPATITIS C AB W REFLEX TO HCV RNA BY PCR (06/18/2021 8:49 EDT) Hep C Antibody Negative Negative 06/19/2021 10:35 EDT [facility] Blood VENOUS BLOOD / Unknown 06/18/2021 8:49 EDT 06/18/2021 21:20 EDT us Provider Outr Resulting Lab CHEMISTRY & BLOOD GA S ORDERABLES Final Result Performing Organization Address [facility] [address]/[facility] de Phone Number [facility] [address] [place] [address] documented in this encounter Visit Diagnoses Not on filedocumented in this encounter Care Teams Education And Outreach Coordinator Relationship Specialty Start Date End Date Gil Schwartz MD PCP - General 01/23/15 documented as of this encounter
--- OUTSIDE RECORDS SUMMARY | 2024-03-01 16:32 | XMS_ITS | Encounter Summary ---
Author Organization [facility] Address [address] [place] [address] Care Team Providers Care Windows Deployment Technician Name Role Phone Gil Schwartz MD Primary Care Provider [phone] Encounter Details Date Type Department Care Team (Late st Contact Info) Description 10/18/[address] [facility] Pathology & Laboratory Medicine - [facility] [address] [place] [address] Outr Resulting Lab, Provider Social History Tobacco [...] Priority Date/Time Associated Diagnosis Comments SIROLIMUS Routine 10/18/2019 10:45 EDT documented in this encounter Results * SIROLIMUS (10/18/2019 10:45 EDT) Sirolimus 6.3 See Note ng/mL 10/19/2019 12:07 EDT [facility] Comment: NOTE: Therapeutic range is dependent on the clinical situation. Assayed utilizing [employer] Chemiluminescent technology. ??Values obtained using different assay methods cannot be used interchangeably. Blood VENOUS BLOOD / Unknown 10/18/2019 10:45 EDT 10/18/2019 16:13 EDT us Provider Outr Resulting Lab CHEMISTRY & BLOOD GA S ORDERABLES Final Result [facility] [address] [place] [address] documented in this encounter Visit Diagnoses Not on filedocumented in this encounter Care Teams Windows Deployment Technician Relationship Specialty Start Date End Date Gil Schwartz MD PCP - General 01/23/15 documented as of this encounter
--- OUTSIDE RECORDS SUMMARY | 2024-03-01 16:32 | XMS_ITS | Clinical Summary ---
Author Organization [facility] Address [address] [place] [address] Care Team Providers Care Assistant Technician Name Role Phone Gil Schwartz MD Primary Care Provider Social History Tobacco Use Types Packs/Day Years Used Date Smoking Tobacco: Never Assessed Sex and Gender Information Value Date Recorded Sex Assigned at Not on file Legal Sex Male 18:34 EST Gender Identity Not on file Sexual Orientation Not on file Plan of Treatment Health Maintenance Due Date Last Done Comments Hepatitis B Vaccine (1 of - 19+ 3-dose series) 07/29 COVID-19 Vaccine ( season) 2023 Hepatitis C Screen Completed 06/18/2021 Procedures Procedure Name Priority Date/Time Associated Diagnosis Comments HEPATITIS C AB W REFLEX TO HCV RNA BY PCR Routine 06/18/2021 8:49 EDT from Last 3 Months or Most Recently Relevant to Health Maintenance Results * HEPATITIS C AB W REFLEX TO HCV RNA BY PCR (06/18/2021 8:49 EDT) Hep C Antibody Negative Negative 06/19/2021 10:35 EDT [facility] Blood VENOUS BLOOD / Unknown 06/18/2021 8:49 EDT 06/18/2021 21:20 EDT us Provider Outr Resulting Lab CHEMISTRY & BLOOD GA S ORDERABLES Final Result [facility] [address] [place] [address] from Last 3 Months or Most Recently Relevant to Health Maintenance Care Teams Assistant Technician Relationship Specialty Start Date End Date Gil Schwartz MD PCP - General 01/23/15
--- OUTSIDE RECORDS SUMMARY | 2024-03-01 16:32 | XMS_ITS | Encounter Summary ---
Author Organization [facility] Address [address] [place] [address] Care Team Providers Care Manpower Development Advisor Name Role Phone Unavailable Primary Care Provider Unavailabl e Encounter Details Date Type Department Care Team (Late st Contact Info) Description 05/08/2004 15:51 EST Hospital Encounter [facility] [address] [place] [address] Chase Lovett MD PhD [address] [facility] Level [address] [place] [id number] Social History Tobacco Use Types Packs/Day Years [...]
--- OUTSIDE RECORDS SUMMARY | 2024-03-01 16:32 | XMS_ITS | Encounter Summary ---
Author Organization [facility] [place] [address] Care Team Providers Care Roving Can Tender Name Role Phone Siri Ram MD Primary Care Provider [phone] Reason for Visit * Reason Onset Date Comments Follow-up 04/05/2020 Scheduled RHC/LH C 04/17/2020 Encounter Details Date Type Department Care Team (Late st Contact Info) Description 04/05/2020 Telephone [place] [address] Mary Edmonds, RN Follow-up (Scheduled RHC/LHC 04/17/2020) Social History Tobacco Use Types Packs/Day Years Used Date Smoking Tobacco: Never Smokeless Tobacco: Never Sex and Gender Information Value Date Recorded Sex Assigned at Not on file Gender Identity Not on file Sexual Orientation Not on file documented as of this encounter Miscellaneous Notes * Telephone Encounter - Mary Edmonds RN - 04/05/2020 1:54 PM ESTSummary: Scheduled RHC/LHC 04/17/2020 Voicemails left on home and cell: date/time for RHC/LHC for 04/17/2020 Arrive SDS 0730 Procedure 0830 NPO after Midnight. On no anticoagulant and not diabetic. Rosa called this morning with date/time and unable to reach him, leaving messages. I let her know I left messages also and will be sure to connect with him next week. I will verify with Dr. Nolasco that he is or is not to have a Cardiac Biopsy also. documented in this encounter Plan of Treatment Not on file documented as of this encounter Visit Diagnoses Not on filedocumented in this encounter Care Teams Roving Can Tender Relationship Specialty Start Date End Date Siri Ram MD [facility] [address] [place] [address] PCP - General Family Medicine 06/28/15 documented as of this encounter
--- OUTSIDE RECORDS SUMMARY | 2024-03-01 16:32 | XMS_ITS | Encounter Summary ---
Author Organization [facility] [place] [address] Care Team Providers Care Director Digital Strategy Name Role Phone Siri Ram MD Primary Care Provider [phone] Reason for Visit * Reason Onset Date Comments Follow-up 05/21/2020 Cardiac Transpla nt follow-up call Encounter Details Date Type Department Care Team (Late st Contact Info) Description 05/21/2020 Telephone [place] [address] Mary Edmonds, RN Follow-up (Cardiac Transplant follow-up call) Social History Tobacco Use Types Packs/Day Years Used Date Smoking Tobacco: Never Smokeless Tobacco: Never Sex and Gender Information Value Date Recorded Sex Assigned at Not on file Gender Identity Not on file Sexual Orientation Not on file documented as of this encounter Miscellaneous Notes * Telephone Encounter - Mary Edmonds, RN - 05/21/2020 11:25 AM ESTSummary: Cardiac Transplant follow-up call Continuing [place] call for Care Coordination: Justin relays: I am all set - and have a plan.You all helped in between during COVID. But I will be asking [facility] if I can come see Dr. Nolasco annually. Justin's PLAN: Every 3 months seeing or talking with someone. [facility]: did call to offeCOVID Vaccine but he was not ready yet. Signed up and will get the Vaccine in [place] soon. PCP: June 2020. Sirolimus level at PCP in June. [facility] September 2020. CT to follow a nodule in his lung, come September Derm [facility] D[facility]A locally in [facility] To call if any questions, concerns or new issues. To update us on his plan, will aware his word. documented in this encounter Plan of Treatment Not on file documented as of this encounter Visit Diagnoses Not on filedocumented in this encounter Care Teams Director Digital Strategy Relationship Specialty Start Date End Date Siri Ram MD [facility] [address] [place] [address] PCP - General Family Medicine 06/28/15 documented as of this encounter
--- OUTSIDE RECORDS SUMMARY | 2024-03-01 16:32 | XMS_ITS | Encounter Summary ---
[place] [address] Care Team Providers Care Commercial Internship Name Role Phone Siri Ram MD Primary Care Provider [phone] Encounter Details Date Type Department Care Team (Late st Contact Info) Description 06/28/2023 Notes Only Cardiology at [address] [phone] Leyla Terry, RN Social History Tobacco Use Types Packs/Day Years Used Date Smoking Tobacco: Never Smokeless Tobacco: Never Sex and Gender Information Value Date Recorded Sex Assigned at Not on file Gender Identity Not on file Sexual Orientation Not on file documented as of this encounter Progress Notes * Leyla Terry RN - 06/28/2023 10:48 AM EDT Following review with Dr. Howe and of Care Everyone in [facility]: Pt receiving Transplant Care [facility]. documented in this encounter Plan of Treatment Not on file documented as of this encounter Visit Diagnoses Not on filedocumented in this encounter Care Teams Commercial Internship Relationship Specialty Start Date End Date Siri Ram MD [facility] [address] [place] [id number] PCP - General Family Medicine 06/28/15 documented as of this encounter
--- OUTSIDE RECORDS SUMMARY | 2024-03-01 16:32 | XMS_ITS | Encounter Summary ---
Author Organization [facility] Address [address] [place] [address] Care Team Providers Care Frame Hand Name Role Phone Unavailable Primary Care Provider Unavailabl e Encounter Details Date Type Department Care Team (Late st Contact Info) Description 02/14/2004 14:01 EST Hospital Encounter [facility] [address] [place] [address] Chase Lovett MD PhD [address] [facility] [address] [place] [id number] Discharge Disposition: Auto Discharge Social History Tobacco Use Types Packs/Day Years Used Date Smoking Tobacco: Never Assessed Sex and Gender Information Value Date Recorded Sex Assigned at Not on file Legal Sex Male 18:34 EST Gender Identity Not on file Sexual Orientation Not on file documented as of this encounter Discharge Disposition Disposition Code Departure Means Destination Auto Discharge documented in this encounter Plan of Treatment Not on file documented as of this encounter Visit Diagnoses Not on filedocumented in this encounter
--- OUTSIDE RECORDS SUMMARY | 2024-03-01 16:32 | XMS_ITS | Encounter Summary ---
[place] [address] Care Team Providers Care Sign Language Interpreter Name Role Phone Siri Ram MD Primary Care Provider Reason for Visit * Auth/Cert Specialty Diagnoses / Procedures Referred By Ron t Referred To Contact Diagnoses History of heart transplant [Z94.1] Procedures PRG CATH PLMT LEFT HEART CATH & ARTS W/INJ & ANGIO IMG S&I PRG RIGHT HEART CATH O2 SATURATION & CARDIAC OUTPUT PRG LEFT HEART CATH W/INJ L VENTRICULOGRAPHY IMG S&I CARDIAC CATHETERIZATION RIGHT AND LEFT HEART CATH Referral ID Status Reason Start Date Expiration Date Visits Re quested Visits Authorized [id number] 1 1 Encounter Details Date Type Department Care Team (Late st Contact Info) Description 04/17/2020 8:30 AM EST - 04/17/2020 9:15 AM EST Surgery [place] [address] Umberto Ni MD [facility] [place] [address] CARDIAC CATHETERIZATION Social History Tobacco Use Types Packs/Day Years Used Date Smoking Tobacco: Never Smokeless Tobacco: Never Sex and Gender Information Value Date Recorded Sex Assigned at Not on file Gender Identity Not on file Sexual Orientation Not on file documented as of this encounter Last Filed Vital Signs Vital Sign Reading Time Taken Comments Blood Pressure 141/100 04/17/2020 9:15 AM EST Pulse 82 04/17/2020 9:15 AM EST Temperature 36.6 ??C (97.8 ??F) 04/17/2020 7:58 AM ES T Respiratory Rate - - Oxygen Saturation 96% 04/17/2020 9:15 AM EST Inhaled Oxygen Concentration - - Weight 98.8 kg (217 lb 12.8 oz) 04/17/2020 7:00 AM EST Height 180.3 cm (5' 10.98) 04/17/2020 7:[address] Body Mass Index 30.39 04/17/2020 7:00 AM EST documented in this encounter Discharge Instructions * Discharge Instructions* Jennifer Christine RN - 04/17/2020 11:33 AM EST Radial Access for Heart Cath Activity If you are discharged the same day as your procedure, do not drive yourself home. Arrange to have another person drive. You may walk around when you get home, but keep your activity at a minimum until the morning. Try to avoid bending your wrist for the first 12-24 hours after the procedure to allow the artery to fully heal. Do not participate in active sports for 48 hours. Do not lift anything greater than 5 lbs. You may engage in sexual activity after 48 hours. Catheter Insertion Area Care Take the dressing off of the catheter insertion site the morning following the procedure. Leave thesite open to air. If the site is oozing you may cover it with a band aid. You may take a shower if you wish. Look for signs of infection over the next several days. It is uncommon to have any visible blood at the site, any obvious bleeding is abnormal. A bruise around the wrist or small lump under the skin is normal: they generally disappear in 3-5 days. Expect some mild tenderness over the area where the catheter was inserted. You will notice this after the local anesthetic (numbing medicine) wears off. This should improve during the 24-48 hours after the procedure. You may use acetaminophen (tylenol) if needed. Contact your doctor if the discomfort worsens. Problems to Watch for If there is bright red blood flowing from the catheter insertion area: *stop what you are doing *hold pressure steadily on the area for 15 minutes *call for help *if the bleeding does not stop in 15 minutes call 911 for an ambulance. If there is swelling with black and blue color at the catheter insertion site, there may be bleeding inside. Contact the doctor if there is any increase in size. Look at the insertion site for the first few days at home. Signs of infection are: *redness *swelling *yellow, white, green or brown foul smelling drainage. *increased soreness If you think there is an infection, take your temperature. Then call your doctor. The limb on the side where you had your catheterization should look and feel normal in color, sensation, and temperature. If your hand or fingers become cool, pale, blue or change color contact your doctor. If you are having numbness or tingling in your fingers or hand contact your doctor. If you feel faint or dizzy, lie down with your feet elevated. Have someone call the doctor. If you are alert, drink fluids. How to Deal with Chest Pain If you had only the cardiac catheterization, treat any angina or chest discomfort as instructed. Stop what you are doing, and sit or lie down. If prescribed, take nitroglycerin under your tongue. If the angina isn't relieved, take another nitroglycerin in 5 minutes. After another 5 minutes, a third nitroglycerin may be taken. If the angina isn't improved you should call for an ambulance to bring you to the nearest hospital emergency room. If your angina is more frequent or severe than before, contact your doctor. We usually would not expect you to have angina after an angioplasty. If you do get angina, treat itas you did before, but also contact your doctor. Return to Work The doctor will usually have told you when to return to work. If you do not perform heavy physical labor, most people can return to work in a few days. Diet Follow your previous diet unless otherwise instructed. Cardiac Risk Factor If you have coronary artery disease, it is important that you help control it by reducing your cardiac risk factors. If you smoke, we urge you to stop now. If you think this is going to be a problem,let us know so that we may help you. We have dieticians who can help you learn about a low fat, lowcholesterol diet. Cardiac rehabilitation programs can help you set up a regular exercise program. Work with your doctor if you have high blood pressure or sugar diabetes to keep these under control. Medications Take your usual medications medication changes If you are taking medications prescribed by your doctor, do not take any apdz-pxi-nmorvil medicinesor herbal preparations without first discussing this with your doctor or pharmacist. There is the possibility of side effects and interactions when these are combined. Follow Up Care Who to call with questions or problems If there are any questions or problems that you think might be related to your cardiac cath or angioplasty, contact the iron erector irrigation flume layer by calling [facility] at [phone]. 1. You have received medication before and/or during your procedure, which affects judgment and reaction time. 2. Do not drive, operate machinery, drink alchololic beverages, or make important decisions for 24 hours. 3. Be careful on stairs, as you may be unsteady on your feet. 4. You may eat a regular diet as tolerated. 5. Do not smoke if you are alone. 6. IV site- slight redness or tenderness is normal, you can use warm compresses. If tenderness and redness increases or foul drainage occours, please contact your M.D. 1. You have received medicationbefore and/or during your procedure, which affects judgment and reaction time. 2. Do not drive, operate machinery, drink alchololic beverages, or make important decisions for 24 hours. 3. Be careful on stairs, as you may be unsteady on your feet. 4. You may eat a regular diet as tolerated. 5. Do not smoke if you are alone. 6. IV site- slight redness or tenderness is normal, you can use warm compresses. If tenderness and redness increases or foul drainage occours, please contact your M.D. documented in this encounter Medications at Time of Discharge Medication Sig Dispensed Refills Start Date End Date mycophenolate (CELLCEPT) 500 mg Tablet Take 500 mg by mouth 2 times daily. 02/07/2020 omeprazole (PriLOSEC) 40 mg Capsule, Delayed Release(E.C.) Take 40 mg by mouth daily. 02/07/2020 prazosin (Minipress) 2 mg Capsule Take 2 mg by mouth 3 times daily. 03/14/2020 carvediloL (Coreg) 25 mg Tablet Take 25 mg by mouth 2 times daily. 02/01/2020 sirolimus (Rapamune) 1 mg Tablet Take 1 mg by mouth daily. 12/18/2019 predniSONE (Deltasone) 5 mg Tablet Take 5 mg by mouth daily. 02/07/2020 rosuvastatin (Crestor) 10 mg Tablet Take 10 mg by mouth daily. 02/01/2020 documented as of this encounter Progress Notes * Jennifer Christine RN - 04/17/2020 11:58 AM EST Discharge criteria met. Discharge instruction reviewed with pt . Pt verbalizes understanding. Questions asked Pt dressed, taken via wheel chair to east entrance for discharge, called and updated, Left without any issure, documented in this encounter H&P Notes * Daniel Denise MD - 04/17/2020 8:03 AM EST Images from the original note were not included. Patient Name: Ruperto Ellis Patient Age: 44 y.o. Birthdate: 1975 Admit date: 04/17/2020 Attending Physician: Umberto Ni MD Pre Cardiac Catheterization Note 44 y.o. male PMH NICM with a OHT transplant in 2005 presents for LHC/RHC. Patient last saw Dr. Nolasco on 03/22/2020. His last angiogram in 2017 showed a mid RCA 25% lesion. He had a DSE in 2018 that showed normal function with an LVEF of 67% and no WMA. Denies planned upcoming surgeries. Denies recent or ongoing bleeding events. Temp 36.6 ??C (97.8 ??F) Ht 180.3 cm (5' 10.98) Wt 98.8 kg (217 lb 12.8 oz) BMI 30.39 kg/m?? Gen: Pleasant male in no apparent distress, able to lay flat Heart: Regular rate and rhythm, s1/s2 of nl character and amplitude, no murmurs/rubs/gallops. JVP not elevated Pulm: Clear to auscultation bilaterally. Ext: Bilateral Moise's Test demonstrates adequate reperfusion via the ulnar artery alone. Femoral arteries are with adequate upstroke and without overlying evidence of infection. DP/PT 2+ symmetrically. Neuro: sans focal deficit Current Outpatient Medications Medication Instructions ??? carvediloL (COREG) 25 mg, Oral, 2 TIMES DAILY ??? mycophenolate (CELLCEPT) 500 mg, Oral, 2 TIMES DAILY ??? omeprazole (PRILOSEC) 40 mg, Oral, DAILY ??? prazosin (MINIPRESS) 2 mg, Oral, 3 TIMES DAILY ??? predniSONE (DELTASONE) 5 mg, Oral, DAILY ??? rosuvastatin (CRESTOR) 10 mg, Oral, DAILY ??? sirolimus (RAPAMUNE) 1 mg, Oral, DAILY Last 3 wbc, hgb, hct plt Recent Labs 03/22/20 0944 WBC 11.2* HGB 14.7 HCT 45.9 PLATELET 252 Last 3 Lytes Recent Labs 03/22/20 0944 NA 137 K 4.1 CL 102 CO2 23 BUN 16 CREATININE 1.08 Sedation evaluation: Mallampati class: II: tonsillar pillars are blocked by the tongue ASA: 3: Patient with severe systemic disease The indications, expected benefits, and potential risks of heart catheterization were reviewed in detail with the patient. The potential for , heart attack, stroke, kidney failure, hemorrhage, allergic reaction, vascular complications and infection were reviewed in detail. The possibility of stenting and other percutaneous intervention, with associated risk, was reviewed. The possible need for emergent coronary artery bypass surgery was reviewed. Alternatives were discussed and the patient's questions were answered in full. Following this discussion, the patient consented to the procedure and signed a form attesting to this, which is in the chart. Daniel Denise MD Aircraft Refueller PGY-6 P: [id number] documented in this encounter Miscellaneous Notes * Brief Op Note - Umberto Ni MD - 04/17/2020 10:59 AM EST Brief Operative Note Patient Name: Ruperto Ellis : [id number] MR#: [id number] Case Date: 04/17/2020 Surgeon: Surgeon(s) and Role: * Umberto Ni MD - Primary * Umesh Haque MD - Fellow Preoperative diagnosis: History of heart transplant [Z94.1] Postoperative diagnosis: History of heart transplant [Z94.1] Procedure(s) (LRB): CARDIAC CATHETERIZATION (N/A) RIGHT AND LEFT HEART CATH (N/A) Findings: Normal right and left-sided filling pressures. No pulmonary hypertension. Normal cardiac output. No angiographically significant disease in the LCA. There was mild 25% disease in the mid-RCA, which was a dominant vessel. Complications: None documented in this encounter Plan of Treatment Not on file documented as of this encounter Procedures Procedure Name Priority Date/Time Associated Diagnosis Comments EKG 12-LEAD STAT 04/17/2020 9:44 AM EST History of heart transplant CARDIAC CATHETERIZATION Routine 04/17/19 9:20 AM EST History of heart transplant HC SIROLIMUS Routine 04/17/2020 9:00 AM EST documented in this encounter Results * EKG 12 Lead (04/17/2020 9:44 AM EST) Ventricular rate 80 BPM MUSE SYSTEM Atrial Rate 80 BPM MUSE SYSTEM P-R Interval 182 ms MUSE SYSTEM QRS Duration 78 ms MUSE SYSTEM Q-T Interval 350 ms MUSE SYSTEM QTC Calculated (Bezet) 403 ms MUSE SYSTEM Calculated P [place] 6 degrees MUSE SYSTEM Calculated R [place] 103 degrees MUSE SYSTEM Calculated T [place] 93 degrees MUSE SYSTEM INTERPRETATION Normal sinus rhythm RSR' or QR pattern in V1 suggests right ventricular conduction delay Abnormal ECG When compared with ECG of 22-MAR-2020 10:20, No significant change was found Confirmed by MD Josh, [facility] ([id number]) on 04/17/2020 12:39:08 PM MUSE SYSTEM 04/17/2020 9:44 AM EST 04/17/2020 12:39 PM EST Umberto Ni MD ECG ORDERABLES MUSE SYSTEM * CARDIAC CATHETERIZATION (04/17/2020 9:20 AM EST) Anatomical Region Laterality Modality Other Narrative 04/17/2020 11:09 AM EST ?[facility] ? Cardiac Catheterization/Intervention Report ? Patient Name: Ruperto Ellis. ? Procedure Date: 04/17/2020 ? A #: [id number] ? Primary Physician: Last, Umberto N ? Case #: [id number] ? File Name: [id number] ? Catheterization Order Number: [id number] ? [facility] ? Final Report [place], [place] ? Patient Name: ? Ruperto Ellis ? ID#: ?[id number] ? : ?1975 ? Procedure Date: ? April 17, 2020 ? Case #: ? [id number] ? Room: ? 2 ? Case Physician: ? Umberto Ni M.D. ?Start: ?09:01 ?Fellow: ? Umesh Haque M.D. ?Admission: ??04/17/2020 ? Referring ? Siri Ram M.D. ? Physicians: ?Simona BenitezDDerrick ? Procedures: ?* Coronary Angiography ?* Left Heart Catheterization ?* Right Heart Catheterization ?* Oximetry ? History ?Ruperto Ellis is a 44 year old man. The patient's smoking status is ?Never. The patient also has a history of cancer. Prior to the initiation ?of this procedure, the patient was designated as ASA Class III. The CSHA ?clinical frailty scale is 2: Well. ? Diagnostic Tests: ?Prior Coronary Angiography: ? Prior coronary angiography was performed on 03/15/2016 and showed ? non-obstructive CAD. ?Electrocardiography: ? EKG was assessed by ECG. EKG was Abnormal. EKG showed other ? abnormality. ?Medications Prior to Procedure: ? Beta Vanna and Statin. ? Indications for Diagnostic Cath: ?The priority of the diagnostic procedure was Elective. 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 Chest pain symptom ?assessment was: Asymptomatic. ? Technique: ?A 6Fr sheath was inserted in the right radial artery utilizing the ?Seldinger technique. A 6Fr sheath was inserted in the right median ?antecubital vein utilizing the Seldinger technique. The left coronary ?artery was injected utilizing a 5Fr CAROLINE RADIAL catheter. A 5Fr CAROLINE ?RADIAL catheter was used to inject the right coronary artery. Right heart ?catheterization was performed utilizing a 6Fr BALLOON WEDGE catheter. ?5,000 units of heparin were administered. A total of 100cc of Omnipaque ?were opened, 49cc of Omnipaque were administered and 51cc of Omnipaque ?were wasted. Radiation: Fluoro time was 4.4 minutes, dose area product ?was 36,296 mGYcm2 and air kerma was 662 mGY. See the case log for ?additional details. ?The patient received the following medications prior to and during the ?procedure: ? Unfractionated Heparin. ? Hemodynamics: ?Right Heart Pressures ? Resting: ? Syst Diast ? EDP ?a ?v ? m ?RA ? 5 ?5 ? 3 ?RV 25 ?4 ?PA 23 ?12 ?16 ?PCW ?10 ?10 ? 7 ? Hemodynamic Profile: ?Profile 1 ?CO ? 6.93 ?CI ? 3.18 ?TSR ? 1,258 ?SVR ? 1,224 ?TPR ?185 ?PVR ?104 ?Technique ?Estimated Rubi ?Left Heart Pressures ? Resting: ? Syst Diast ? EDP ?a ?v ? m ?Ao 135 ?? 87 ?109 ?LV 131 ? 7 ? Oximetry: ?Location ? %Sat ?Location ?%Sat ?Superior Vena Cava ? 73.0 ?Main Pulmonary Artery ?? 74.0 ?Radial artery ?95.0 ? Coronary Angiography: ?Dominance: Right ?Left Main ? The left main was normal, free of disease. ?Left Anterior Descending ? There was mild diffuse (<=25% stenosis) disease of the mid segment ? of the left anterior descending artery (LAD). ?Left Circumflex ? There was a 15% single discrete stenosis of the mid segment of the ? left circumflex artery (LCX). ??The LCX was large. ?Right Coronary Artery ? There was a 25% single discrete stenosis of the mid 1 segment of the ? right coronary artery (RCA). ? Indication for Selected Procedures: ?Right Heart catheterization was initiated for Heart transplant failure ?(T86.22). ? Vascular Access: ?Vascular Access Management: ? Manual Compression of the right median antecubital vein access site ? was performed. ? Mechanical Compression of the right radial artery access site was ? performed. ? Conclusions: ?* Nonobstructive coronary artery disease ? Complications/Events: ?The patient had no complications during these procedures. ?The attending physician was present for the entire procedure. ?Dr. Umberto Ni M.D. performed the coronary angiography, left heart ?catheterization, right heart catheterization and oximetry. ? Umberto Ni M.D. ? Electronically Signed by: Umberto Ni M.D. ? Report Finalized: 04/17/2020 ??11:02 ? Report Last Ammended: 04/17/2020 ??13:34 ? Procedure Note Umberto Ni MD - 04/17/2020 [facility] Cardiac Catheterization/Intervention Report Patient Name: Ruperto Ellis Procedure Date: 04/17/2020 A #: [id number] Primary Physician: Umberto Ni Case #: [id number] File Name: [id number] Catheterization Order Number: [id number] [facility] FinalReport [place], [place] Patient Name: Ruperto Ellis ID#:[id number] :1975 Procedure Date: April 17, 2020 Case #: [id number] Room: 2 Case Physician: Umberto Ni M.D. Start: 09:01 Fellow: Umesh Haque M.D. Admission:04/17/2020 Referring Siri Ram M.D. Physicians: Kristi Nolasco M.D. Procedures: * Coronary Angiography * Left Heart Catheterization * Right Heart Catheterization * Oximetry History Ruperto Ellis is a 44 year old man. The patient's smokingstatus is Never. The patient also has a history of cancer. Prior to theinitiation of this procedure, the patient was designated as ASA Class III. [facility] fra[facility] is 2: Well. Diagnostic Tests: Prior Coronary Angiography: Prior coronary angiography was performed on 03/15/2016 andshowed non-obstructive CAD. Electrocardiography: EKG was assessed by ECG. EKG was Abnormal. EKG showed other abnormality. Medications Prior to Procedure: Beta Vanna and Statin. Indications for Diagnostic Cath: The priority of the diagnostic procedure was Elective. 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 Chest pain symptom assessment was: Asymptomatic. Technique: A 6Fr sheath was inserted in the right radial artery utilizing the Seldinger technique. A 6Fr sheath was inserted in the right median antecubital vein utilizing the Seldinger technique. The leftcoronary artery was injected utilizing a 5Fr CAROLINE RADIAL catheter. A 5FrJACKY RADIAL catheter was used to inject the right coronary artery. Rightheart catheterization was performed utilizing a 6Fr BALLOON WEDGEcatheter. 5,000 units of heparin were administered. A total of 100cc ofOmnipaque were opened, 49cc of Omnipaque were administered and 51cc ofOmnipaque were wasted. Radiation: Fluoro time was 4.4 minutes, dose areaproduct was 36,296 mGYcm2 and air kerma was 662 mGY. See the case log for additional details. The patient received the following medications prior to and duringthe procedure: Unfractionated Heparin. Hemodynamics: Right Heart Pressures Resting: Syst Diast EDP a v m RA 5 5 3 RV 25 4 PA 23 12 16 PCW 10 10 7 Hemodynamic Profile: Profile 1 CO 6.93 CI 3.18 TSR 1,258 SVR 1,224 TPR 185 PVR 104 Technique Estimated Rubi Left Heart Pressures Resting: Syst Diast EDP a v m Ao 135 87 109 LV 131 7 Oximetry: Location %Sat Location %Sat Superior Vena Cava 73.0 Main Pulmonary Artery 74.0 Radial artery 95.0 Coronary Angiography: Dominance: Right Left Main The left main was normal, free of disease. Left Anterior Descending There was mild diffuse (<=25% stenosis) disease of the midsegment of the left anterior descending artery (LAD). Left Circumflex There was a 15% single discrete stenosis of the mid segment ofthe left circumflex artery (LCX). The LCX was large. Right Coronary Artery There was a 25% single discrete stenosis of the mid 1 segmentof the right coronary artery (RCA). Indication for Selected Procedures: Right Heart catheterization was initiated for Heart transplantfailure (T86.22). Vascular Access: Vascular Access Management: Manual Compression of the right median antecubital vein accesssite was performed. Mechanical Compression of the right radial artery access sitewas performed. Conclusions: * Nonobstructive coronary artery disease Complications/Events: The patient had no complications during these procedures. The attending physician was present for the entire procedure. Dr. Umberto Ni M.D. performed the coronary angiography, leftheart catheterization, right heart catheterization and oximetry. Umberto Ni M.D. Electronically Signed by: Umberto Ni M.D. Report Finalized: 04/17/2020 11:02 Report Last Ammended: 04/17/2020 13:34 Umberto Ni MD CARDIAC CATH ORDERAB LES * Sirolimus level (04/17/2020 9:00 AM EST) Sirolimus Lvl 5.7 ng/mL [facility] Comment: Trough therapeutic: 5-15 ng/mL Performed by ultra-performance liquid chromatography tandem mass spectrometry (UPLCMS/MS). This test was developed and its performance characteristics determined by [facility]. It has not been cleared or approved by the FDA. The laboratory is regulated under CLIA as qualified to perform high-complexity testing. This test is used for clinical purposes. It should not be regarded as investigational or for research. Blood specimen (specimen) 04/17/2020 9:00 AM EST 04/17/2020 1:21 PM EST Narrative Resulting Agency Comment Spec In Lab Umberto Ni MD LAB [place] [address] documented in this encounter Visit Diagnoses Diagnosis History of heart transplant- Primary Heart replaced by transplant History of heart transplant Heart replaced by transplant History of heart transplant Heart replaced by transplant documented in this encounter Admitting Diagnoses Diagnosis History of heart transplant Heart replaced by transplant documented in this encounter Administered Medications Inactive Administered Medications - up to 3 most recent administrations Medication Order MAR Action Action Date Dose Rate Site heparin (porcine) (1,000 units/mL) injection ONCE PRN, Starting on Wed04/17/20 at 0914, Until Wed04/17/20 at 0924, Cath (Intra-Procedure), Routine Given 04/17/2020 9:14 AM EST 5,000 Units iohexoL (Omnipaque) (350 mg/mL) injection solution ONCE PRN, Starting on Wed04/17/20 at 0917, Until Wed04/17/20 at 0924, Cath (Intra-Procedure), Routine Given 04/17/2020 9:17 AM EST 49 mLs nitroGLYcerin 100 mcg/mL intracoronary dilution ONCE PRN, Starting on Wed04/17/20 at 0902, Until Wed04/17/20 at 0924, Cath (Intra-Procedure), Routine Given 04/17/2020 9:02 AM EST 150 mcg verapamiL (Isoptin) (2.5 mg/mL) injection ONCE PRN, Starting on Wed04/17/20 at 0902, Until Wed04/17/20 at 0924, Administer over 2 Minutes, Cath (Intra-Procedure) Given 04/17/2020 9:02 AM EST 2.5 mg documented in this encounter Active and Recently Administered Medications Times are shown in EST. Continuous Medication Order 04/15/2020 04/16/2020 04/17/2020 sodium chloride 0.9% infusion 10 mL/hr, Intravenous, CONTINUOUS, Starting on Wed04/17/20 at 1015, Until Wed04/17/20 at 1400, KVO, Recovery (Recovery-Hospital Unit) 1015 (Due) PRN Medication Order 04/15/2020 04/16/2020 04/17/2020 heparin (porcine) (1,000 units/mL) injection (CANCELED) ONCE PRN, Starting on Wed04/17/20 at 0914, Until Wed04/17/20 at 0924, Cath (Intra-Procedure), Routine 913 (Given - Provid er: Thu Clark RN) iohexoL (Omnipaque) (350 mg/mL) injection solution (CANCELED) ONCE PRN, Starting on Wed04/17/20 at 0917, Until Wed04/17/20 at 0924, Cath (Intra-Procedure), Routine 916 (Given - Provid er: Thu Clark RN) nitroGLYcerin (Nitrostat) disintegrating tablet 0.4 mg 0.4 mg, Sublingual, EVERY 5 MIN PRN, Starting on Wed04/17/20 at 0946, Until Wed04/17/20 at 1400, Chest pain, May repeat every 5 minutes for a total of three doses. Notify provider if chest pain not relieved with nitroglycerin. Do not administer nitroglycerin if the patient has received or taken phosphodiesterase (PDE-5) inhibitors such as sildenafil, tadalafil or vardenafil within the last 24 to 72 hours., Recovery (Recovery-Hospital Unit), Routine nitroGLYcerin 100 mcg/mL intracoronary dilution (CANCELED) ONCE PRN, Starting on Wed04/17/20 at 0902, Until Wed04/17/20 at 0924, Cath (Intra-Procedure), Routine 901 (Given - Provid er: Umberto Ni MD) verapamiL (Isoptin) (2.5 mg/mL) injection (CANCELED) ONCE PRN, Starting on Wed04/17/20 at 0902, Until Wed04/17/20 at 0924, Administer over 2 Minutes, Cath (Intra-Procedure) 901 (Given - Provid er: Umberto Ni MD) documented in this encounter Care Teams Sign Language Interpreter Relationship Specialty Start Date End Date Siri Ram MD [facility] JAN SALGUERO [address] [address] PCP - General Family Medicine 06/28/15 documented as of this encounter
--- OUTSIDE RECORDS SUMMARY | 2024-03-01 16:32 | XMS_ITS | Encounter Summary ---
Author Organization [facility] Address [address] [place] [address] Care Team Providers Care Assistant Track And Field Coach Name Role Phone Gil Schwartz MD Primary Care Provider [phone] Encounter Details Date Type Department Care Team (Late st Contact Info) Description 07/28/[address] [facility] Pathology & Laboratory Medicine - [address] [address] Outr Resulting Lab, Provider Social History Tobacco [...] Priority Date/Time Associated Diagnosis Comments SIROLIMUS Routine 07/28/2019 8:09 EDT documented in this encounter Results * SIROLIMUS (07/28/2019 8:09 EDT) Sirolimus 7.7 See Note ng/mL 07/31/2019 12:05 EDT [facility] Comment: NOTE: Therapeutic range is dependent on the clinical situation. Assayed utilizing Ambrose Chemiluminescent technology. ??Values obtained using different assay methods cannot be used interchangeably. Blood VENOUS BLOOD / Unknown 07/28/2019 8:09 EDT 07/28/2019 15:36 EDT us Provider Outr Resulting Lab CHEMISTRY & BLOOD GA S ORDERABLES Final Result [facility] [address] [place] [address] documented in this encounter Visit Diagnoses Not on filedocumented in this encounter Care Teams Assistant Track And Field Coach Relationship Specialty Start Date End Date Gil Schwartz MD PCP - General 01/23/15 documented as of this encounter
--- OUTSIDE RECORDS SUMMARY | 2024-03-01 16:32 | XMS_ITS | Encounter Summary ---
Author Organization [facility] Address [address] [place] [address] Care Team Providers Care Cotton Acreage Measurer Name Role Phone Unavailable Primary Care Provider Unavailabl e Encounter Details Date Type Department Care Team (Late st Contact Info) Description 08/14/2004 12:51 EDT Hospital Encounter [facility] [address] [place] [address] Chase Lovett MD PhD [address] [facility] Level [address] [place] [phone] Social History Tobacco Use Types Packs/Day Years [...]
--- OUTSIDE RECORDS SUMMARY | 2024-03-01 16:32 | XMS_ITS | Encounter Summary ---
Author Organization [facility] Address [place] [id number] Care Team Providers Care Water Rights Specialist Name Role Phone Siri Ram MD Primary Care Provider [phone] Encounter Details Date Type Department Care Team (Late st Contact Info) Description 02/14/2020 Telephone Cardiology at [address] [phone] Suzanne Guzmán Social History Tobacco Use Types Packs/Day Years Used Date Smoking Tobacco: Never Assessed Sex and Gender Information Value Date Recorded Sex Assigned at Not on file Gender Identity Not on file Sexual Orientation Not on file documented as of this encounter Miscellaneous Notes * Telephone Encounter - Suzanne Guzmán - 02/14/2020 3:31 PM EST Attempted to call patient multiple times since 12/11/19 and left messages asking for the patient to call back to schedule. Will send a letter asking for the patient to call and schedule his appointment. Referring provider's office has been notified. documented in this encounter Plan of Treatment Not on file documented as of this encounter Visit Diagnoses Not on filedocumented in this encounter Care Teams Water Rights Specialist Relationship Specialty Start Date End Date Siri Ram MD [address] [place] [address] PCP - General Family Medicine 06/28/15 documented as of this encounter
--- OUTSIDE RECORDS SUMMARY | 2024-03-01 16:32 | XMS_ITS | Encounter Summary ---
[place] [address] Care Team Providers Care Preflight Mechanic Name Role Phone Siri Ram MD Primary Care Provider [phone] Encounter Details Date Type Department Care Team (Late st Contact Info) Description 03/06/2020 Orders Only Cardiology at [address] [phone] Fabiola Alonzo, RN H/O heart transplant Social History Tobacco Use Types Packs/Day Years Used Date Smoking Tobacco: Never Assessed Sex and Gender Information Value Date Recorded Sex Assigned at Not on file Gender Identity Not on file Sexual Orientation Not on file documented as of this encounter Miscellaneous Notes * Addendum Note - Fabiola Shukla RN - 03/06/2020 6:04 PM ESTAddended by: FABIOLA SHUKLA on: 03/06/2020 06:06 PM Modules accepted: Orders documented in this encounter Plan of Treatment Not on file documented as of this encounter Visit Diagnoses Diagnosis H/O heart transplant Heart replaced by transplant documented in this encounter Care Teams Preflight Mechanic Relationship Specialty Start Date End Date Siri Ram MD [address] [place] [address] PCP - General Family Medicine 06/28/15 documented as of this encounter
--- OUTSIDE RECORDS SUMMARY | 2024-03-01 16:32 | XMS_ITS | Encounter Summary ---
Author Organization [facility] Address [address] [place] [address] Care Team Providers Care Sample Carrier Name Role Phone Gil Schwartz MD Primary Care Provider [phone] Encounter Details Date Type Department Care Team (Late st Contact Info) Description 06/18/2021 Lab Requisition [facility] Pathology & Laboratory Medicine - [facility] [address] [place], [place] [address] Outr Resulting Lab, Provider Social History Tobacco [...] Procedure Name Priority Date/Time Associated Diagnosis Comments HIV 1/2 ANTIGEN AND ANTIBODY, 4TH GENERATION Routine 06/18/2021 8:49 EDT documented in this encounter Results * HIV 1/2 ANTIGEN AND ANTIBODY, 4TH GENERATION (06/18/2021 8:49 EDT) HIV 1 and 2 Antibody/p24 Antigen, 4th Generation Negative Negative 06/19/2021 11:03 EDT [facility] Comment:If acute HIV-1 infec tion is suspected in a high risk patient, submit plasma specimen for HIV-1 RNA quantitation test. Blood VENOUS BLOOD / Unknown 06/18/2021 8:49 EDT 06/18/2021 21:20 EDT Narrative [facility] - 06/19/2021 11:03 EDT Fourth Generation assay performed on the Siemens Centaur XPT. us Provider Outr Resulting Lab IMMUNOLOGY AND SEROL OGY ORDERABLES Final Result [facility] [address] [place] [address] documented in this encounter Visit Diagnoses Not on filedocumented in this encounter Care Teams Sample Carrier Relationship Specialty Start Date End Date Gil Schwartz MD PCP - General 01/23/15 documented as of this encounter
--- OUTSIDE RECORDS SUMMARY | 2024-03-01 16:32 | XMS_ITS | Encounter Summary ---
Author Organization [facility] Address [address] [place] [address] Care Team Providers Care Packing Tractor Machine Operator Name Role Phone Gil Schwartz MD Primary Care Provider [phone] Encounter Details Date Type Department Care Team (Late st Contact Info) Description 11/09/2023 Lab Requisition [facility] Pathology & Laboratory Medicine - [address] [address] Outr Resulting Lab, Provider Social History Tobacco [...] Priority Date/Time Associated Diagnosis Comments SIROLIMUS Routine 11/08/2023 16:32 EDT PSA TOTAL, DIAGNOSTIC Routine 11/08/2023 16:32 EDT documented in this encounter Results * (ABNORMAL) PSA TOTAL, DIAGNOSTIC (11/08/2023 16:32 EDT) PSA 9.6(H) <=2.5 ng/mL 11/09/2023 19:22 EDT [facility] Blood VENOUS BLOOD / Unknown 11/08/2023 16:32 EDT 11/09/2023 17:53 EDT Narrative [facility] - 11/09/2023 19:22 EDT NOTE: Serum PSA concentration should not be interpreted as absolute evidence for the presence or absence of malignant disease. Assayed on Siemens ADVIA Lux Bio Groupaur XPT using chemiluminescent technology.??Values obtained by using different assay methods cannot be used interchangeably. us Provider Outr Resulting Lab CHEMISTRY & BLOOD GA S ORDERABLES Final Result Performing Organization Address [facility]/ZIP Co de Phone Number [facility] [address] [place], [place] [address] * SIROLIMUS (11/08/2023 16:32 EDT) Sirolimus 14.0 See Note ng/mL 11/10/2023 12:05 EDT [facility] Comment: NOTE: Sirolimus Therapeutic Range: 4-10 ng/mL (The goal level is based on clinical context). Assayed utilizing Ambrose Chemiluminescent technology. ??Values obtained using different assay methods cannot be used interchangeably. Blood VENOUS BLOOD / Unknown 11/08/2023 16:32 EDT 11/09/2023 17:55 EDT us Provider Outr Resulting Lab CHEMISTRY & BLOOD GA S ORDERABLES Final Result Performing Organization Address [facility] Co de Phone Number [facility] [address] [place] [phone] documented in this encounter Visit Diagnoses Not on filedocumented in this encounter Care Teams Packing Tractor Machine Operator Relationship Specialty Start Date End Date Gil Schwartz MD PCP - General 01/23/15 documented as of this encounter
--- OUTSIDE RECORDS SUMMARY | 2024-03-01 16:32 | XMS_ITS | Clinical Summary ---
Author Organization [facility] [place] [address] Care Team Providers Care Division Director Name Role Phone Siri Ram MD Primary Care Provider [phone] Allergies Active Allergy Reactions Criticality Noted Date Comments Amiodarone Anaphylaxis,Other (S ee Comments) High 09/28/2006 see comment; allergic to IV version only, tolerates PO; Medications Medication Sig Dispensed Refills Start Date End Date Status mycophenolate (CELLCEPT) 500 mg Tablet Take 500 mg by mouth 2 times daily. 02/07/2020 Active omeprazole (PriLOSEC) 40 mg Capsule, Delayed Release(E.C.) Take 40 mg by mouth daily. 02/07/2020 Active prazosin (Minipress) 2 mg Capsule Take 2 mg by mouth 3 times daily. 03/14/2020 Active carvediloL (Coreg) 25 mg Tablet Take 25 mg by mouth 2 times daily. 02/01/2020 Active sirolimus (Rapamune) 1 mg Tablet Take 1 mg by mouth daily. 12/18/2019 Active predniSONE (Deltasone) 5 mg Tablet Take 5 mg by mouth daily. 02/07/2020 Active rosuvastatin (Crestor) 10 mg Tablet Take 10 mg by mouth daily. 02/01/2020 Active Active Problems Problem Noted Date Diagnosed Date Long-term use of immunosuppressant medication Overview (05/16/2020): S/P Transplant 09/2005 [facility] due to adriamycin Transplant Medications Prednisone Mycophenalate Sirolimus [Goal 6-8] Sirolimus Level 03/22/2020 5mg Daily 500mg BID 1mg Daily 6.3 on 10/16/2020 ??04/17/2020 ? 1mg Daily 5.7 ?? History of heart transplant 04/09/2020 Overview (04/09/2020): Added automatically from request for surgery [id number] Social History Tobacco Use Types Packs/Day Years Used Date Smoking Tobacco: Never Smokeless Tobacco: Never Sex and Gender Information Value Date Recorded Sex Assigned at Not on file Gender Identity Not on file Sexual Orientation Not on file Last Filed Vital Signs Vital Sign Reading Time Taken Comments Blood Pressure 162/88 04/17/2020 11:40 AM EST Pulse 79 04/17/2020 11:40 AM EST Temperature 36.6 ??C (97.8 ??F) 04/17/2020 7:58 AM ES T Respiratory Rate 13 04/17/2020 11:4 0 AM EST Oxygen Saturation 94% 04/17/2020 11: 40 AM EST Inhaled Oxygen Concentration - - Weight 98.8 kg (217 lb 12.8 oz) 04/17/2020 7:00 AM EST Height 180.3 cm (5' 10.98) 04/17/2020 7:[address] Body Mass Index 30.39 04/17/2020 7:00 AM EST Plan of Treatment Health Maintenance Due Date Last Done Comments CT Colonography 1977 Colonoscopy 1977 Colorectal Cancer Screening 1977 FIT DNA 1977 FIT 1977 Sigmoidoscopy (10 year) with FIT yearly 1977 Sigmoidoscopy 1977 HIV screen 07/30/1995 Hepatitis C Screening 07/30/1995 Hepatitis B vaccine (0-59 yrs) (1) 1996 Tetanus/Diphtheria/Pertussis Vaccines (1 - Tdap) 1996 Covid-19 Vaccine ( - 2023- season) 2023 Influenza (Flu) vaccine (1 o f 1 - Influenza standard series) 11/14/2023 Diabetes Screening (HgbA1C or Glucose) Discontinued , 03/22/2020 Lipid Screening Discontinued 03/22/2020 Procedures Procedure Name Priority Date/Time Associated Diagnosis Comments HC VENIPUNCTURE Routine 03/22/2020 9:44 AM EST History of heart transplant HC HEMOGLOBIN A1C STAT 03/22/2020 9:4 4 AM EST History of heart transplant from Last 3 Months or Most Recently Relevant to Health Maintenance Results * (ABNORMAL) Hemoglobin A1c (03/22/2020 9:44 AM EST) [facility] Signature Hemoglobin A1c 6.6(H) 4.3 - 5.6 % [facility] Comment: Reference Range: 4.3 [...] Mellitus, Diabetes Care 2013; 36: Suppl. 1, S67-92 Estimated Average Glucose 142 mg/dL [facility] Comment: eAG equivalents for [...] into estimated average glucose values. ??Diabetes Care 2008:31(8):8337-5652. Blood specimen (specimen) 03/22/2020 9:44 AM EST 03/22/2020 11:03 AM EST Narrative Resulting Agency Comment Spec In Lab Kristi Burr MD CHEMISTRY OR DERABLES Performing Organization Address City/State/[facility] Co de Phone Number [facility] [place] [address] * Lipid Panel (Reflex Direct LDL) (03/22/2020 9:44 AM EST) Cholesterol, Total 180 mg/dL [facility] Comment: Lower Risk: <200 mg/dL Average Risk: 200-239 mg/dL Higher Risk: >ex=994 mg/dL Triglyceride 226 mg/dL [facility] Comment: Average Risk/Lower Risk: <150 mg/dL Borderline High Risk: 150-199 mg/dL High Risk: 200-499 mg/dL Very High Risk: >zm=891 mg/dL HDL Cholesterol 39 mg/dL [facility] Comment: Males: ?? Higher Risk: <40 mg/dL Females: ?? HIgher Risk: <50 mg/dL LDL Cholesterol 96 mg/dL [facility] Comment: Lowest Risk: <100 mg/dL Lower Risk: 100-129 mg/dL Borderline High Risk: 130-159 mg/dL High Risk: 160-189 mg/dL Very High Risk: >md=377 mg/dL Cholesterol/HDL Ratio 4.6 ratio [facility] Lipid Interpretation See Note [facility] Comment: Lipid management should be guided by a patient? s ASCVD risk, goals and preferences. ACC/AHA Guidelines recommend high intensity statin if clinical ASCVD or LDL greater than or equal to 190 mg/dL. http://Break30url.com/XWH-TBR-Opkipudzo Adults aged 40-75 with LDL 70-189 mg/dL should have their 10 year ASCVD risk estimated with the ACC/AHA ASCVD risk qa test analyst http://tools.acc.org/XKOBH-Jgxh-Qxzjtkxdo/ Statin should be discussed if risk greater [...] Lab Kristi Burr MD CHEMISTRY OR DERABLES [facility] [place] [address] from Last 3 Months or Most Recently Relevant to Health Maintenance Advance Directives * Attempt Cardiopulmonary Resuscitation - Inpatient (Latest Code Status on File) Date Activated Date Inactivated Comments 04/17/2020 8:37 AM 04/17/2020 2:05 PM Question Answer Comments Code Status decision made by: Patient Care Teams Division Director Relationship Specialty Start Date End Date Siri Ram MD [facility] [address] [place] [address] PCP - General Family Medicine 06/28/15
--- OUTSIDE RECORDS SUMMARY | 2024-03-01 16:32 | XMS_ITS | Encounter Summary ---
Author Organization [facility] Address [address] [place] [address] Care Team Providers Care Flash Ranging Crewmember Name Role Phone Gil Schwartz MD Primary Care Provider [phone] Encounter Details Date Type Department Care Team (Late st Contact Info) Description 09/21/2022 Lab Requisition [facility] Pathology & Laboratory Medicine - [address] [address] Outr Resulting Lab, Provider Social History Tobacco [...] Priority Date/Time Associated Diagnosis Comments SIROLIMUS Routine 09/21/2022 8:20 EDT documented in this encounter Results * SIROLIMUS (09/21/2022 8:20 EDT) Sirolimus 7.8 See Note ng/mL 09/23/2022 12:20 EDT [facility] Comment: NOTE: Sirolimus Therapeutic Range: 4-10 ng/mL (The goal level is based on clinical context). Assayed utilizing Ambrose Chemiluminescent technology. ??Values obtained using different assay methods cannot be used interchangeably. Blood VENOUS BLOOD / Unknown 09/21/2022 8:20 EDT 09/22/2022 15:30 EDT us Provider Outr Resulting Lab CHEMISTRY & BLOOD GA S ORDERABLES Final Result [facility] [address] [place] [address] documented in this encounter Visit Diagnoses Not on filedocumented in this encounter Care Teams Flash Ranging Crewmember Relationship Specialty Start Date End Date Gil Schwartz MD PCP - General 01/23/15 documented as of this encounter
--- OUTSIDE RECORDS SUMMARY | 2024-03-01 16:32 | XMS_ITS | Encounter Summary ---
[place] [address] Care Team Providers Care Sole Layer Name Role Phone Siri Ram MD Primary Care Provider [phone] Reason for Visit * Auth/Cert Specialty Diagnoses [...] Expiration Date Visits Re quested Visits Authorized [id number] 1 1 Encounter Details Date Type Department Care Team (Latest Contact Info) Description 04/17/2020 7:15 AM EST - 04/17/2020 12:00 PM [facility] Hospital Encounter [place] [phone] Umberto Ni MD [facility] [place] [address] History of heart transplant; History of heart transplant Discharge Disposition: Home Social History Tobacco Use Types Packs/Day Years [...] by your doctor, do not take any irrq-uzg-pufzooj medicinesor herbal preparations without first discussing this with your doctor or pharmacist. There is the possibility of side effects and interactions when these are combined. Follow Up Care Who to call with questions or problems If there are any questions or problems that you think might be related to your cardiac cath or angioplasty, contact the manager intermediate astronaut mission specialist by calling [facility] at [phone]. 1. You have received medication before and/or [...] is in the chart. Daniel Denise MD Nonprofit Fundraiser PGY-6 P: [id number] documented in this encounter Miscellaneous Notes * Brief Op Note - Umberto Ni MD - 04/17/2020 10:59 AM EST Brief Operative Note Patient Name: Ruperto Ellis : [id number] MR#: [id number] Case Date: 04/17/2020 Surgeon: Surgeon(s) and Role: [...] (Bezet) 403 ms MUSE SYSTEM Calculated P Malone 6 degrees MUSE SYSTEM Calculated R Malone 103 degrees MUSE SYSTEM Calculated T Malone 93 degrees MUSE SYSTEM INTERPRETATION Normal sinus rhythm RSR' or QR pattern in V1 suggests right ventricular conduction delay Abnormal ECG When compared with ECG of 22-MAR-2020 10:20, No significant change was found Confirmed by MD Josh, Andre ([id number]) on 04/17/2020 12:39:08 PM MUSE SYSTEM 04/17/2020 9:44 AM EST 04/17/2020 12:39 PM EST Umberto Ni MD ECG ORDERABLES MUSE SYSTEM * CARDIAC CATHETERIZATION (04/17/2020 9:20 AM EST) Anatomical Region Laterality Modality Other Narrative 04/17/2020 11:09 AM EST ?[facility] ? Cardiac Catheterization/Intervention Report ? Patient Name: Ellis, Ruperto A. ? Procedure Date: 04/17/2020 ? A #: [id number] ? Primary Physician: Umberto Ni ? Case #: [id number] ? File Name: [id number] ? Catheterization Order Number: [id number] ? [facility] ? Final Report [place], [place] ? Patient Name: ? Ruperto Ellis ? ID#: ?[id number] ? : ?1975 ? Procedure Date: ? April 17, 2020 ? Case #: ? [id number] ? Room: ? 2 ? Case Physician: ? Umberto Ni M.D. ?Start: ?09:01 ?Fellow: ? Umesh Haque M.D. ?Admission: ??04/17/2020 ? Referring ? Siri Ram M.D. ? Physicians: ?Kristi Nolasco M.D. ? Procedures: ?* Coronary Angiography ?* Left [...] procedure was Elective. 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 Chest pain [...] Procedure Note Umberto Ni MD - 04/17/2020 [facility] Cardiac Catheterization/Intervention Report Patient Name: Ruperto Ellis Procedure Date: 04/17/2020 A #: [id number] Primary Physician: Umberto Ni Case #: [id number] File Name: [id number] Catheterization Order Number: [id number] [facility] FinalReport [place], [place] Patient Name: Ruperto Spence Caleb ID#:[id number] :1975 Procedure Date: April 17, 2020 Case [...] patient was designated as ASA Class III. [facility] is 2: Well. Diagnostic Tests: Prior Coronary Angiography: Prior coronary angiography was performed on 03/15/2016 andshowed non-obstructive CAD. Electrocardiography: EKG was assessed by ECG. EKG was Abnormal. EKG showed other abnormality. Medications Prior to Procedure: Beta Vanna and Statin. Indications for Diagnostic Cath: The priority of the diagnostic procedure was Elective. 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 Chest pain [...] present for the entire procedure. Dr. Umberto iN M.D. performed the coronary angiography, leftheart catheterization, right heart catheterization and oximetry. Umberto Ni M.D. Electronically Signed by: Umberto Ni M.D. Report Finalized: 04/17/2020 11:02 Report Last Ammended: 04/17/2020 13:34 Umberto Ni MD CARDIAC CATH ORDERAB LES * Sirolimus level (04/17/2020 9:00 AM EST) Sirolimus Lvl 5.7 ng/mL [facility] Comment: Trough therapeutic: 5-15 ng/mL Performed by ultra-performance liquid chromatography tandem mass spectrometry (UPLCMS/MS). This test was developed and its performance characteristics determined by [facility]. It has not been cleared or approved [...] Ni MD LAB SEND OUT ORDERAB LES [facility] [place] [address] documented in this encounter Visit Diagnoses Diagnosis History of heart transplant- Primary Heart replaced by transplant History of heart transplant Heart replaced by transplant History of heart transplant Heart replaced by transplant documented in this encounter Admitting Diagnoses Diagnosis History of heart transplant Heart replaced by transplant documented in this encounter Administered Medications documented in this encounter Active and Recently [...] Until Wed04/17/20 at 0924, Cath (Intra-Procedure), Routine 0914 (Given - Provid er: Thu Clark RN) iohexoL (Omnipaque) (350 mg/mL) injection solution (CANCELED) ONCE PRN, Starting on Wed04/17/20 at 0917, Until Wed04/17/20 at 0924, Cath (Intra-Procedure), Routine 17 (Given - Provid er: Thu Clark RN) [...] MD) documented in this encounter Care Teams Sole Layer Relationship Specialty Start Date End Date Siri Ram MD [facility] J[address] [place] [address] PCP - General Family Medicine 06/28/15 documented as of this encounter
[2024-03-01 16:58] LABS: Calculated LDL 105 mg/dL (<100); Cholesterol 197 mg/dL (<200); HDL Cholesterol 53 mg/dL (40-60); Triglyceride 199 mg/dL (<150)
[2024-03-01 16:59] LABS: ALT 58 U/L (16-63); AST 27 U/L (15-37); Albumin 3.9 g/dL (3.4-5.0); Alkaline Phosphatase 185 U/L (46-116); Anion Gap 9.2 mmol/L (3-11); BUN 18 mg/dL (7-18); Bilirubin, Total 0.68 mg/dL (0.2-1.0); CO2 28.8 mmol/L (21.0-32.0); CREATININE 1.1 mg/dL (0.70-1.30); Calcium 9.8 mg/dL (8.5-10.1); Chloride 104 mmol/L (98-107); Estimated GFR 83.84 (mL/min/1.73m2); Glucose 124 mg/dL (74-106); Potassium 4.2 mmol/L (3.5-5.1); Sodium 142 mmol/L (136-145); Total Protein 7.9 g/dL (6.4-8.2)
== END 2024-03-01 16:31 | disposition home or self-care (01) ==
LOC: LBO 16:31
PROVIDERS: Nurse Practitioner; PCP Family Medicine; Visit Provider Specialist/Technologist Athletic Trainer
DX: Z94.1 Heart transplant status (principal)
CPT/HCPCS: 36415; 80053; 80061; 80195; 85025; 85610

== ENCOUNTER 2024-06-19 11:52 | Outpatient (CLI) | payer BC, SELFPAY ==
[2024-06-19 19:01] LABS: PSA, Diagnostic 7.2 ng/mL (<=2.5)
== END 2024-06-19 11:53 | disposition home or self-care (01) ==
LOC: LBO 11:52
PROVIDERS: PCP Family Medicine; Visit Provider Nurse Practitioner Gerontology
DX: R97.20 Elevated prostate specific antigen [PSA] (principal); N40.2 Nodular prostate without lower urinary tract symptoms
CPT/HCPCS: 36415; 84153

== ENCOUNTER 2024-07-25 09:22 | Outpatient (REF) | payer BC, SELFPAY ==
--- NOTE | 2024-07-25 09:30 | PROST_PTH ---
PATIENT: Ruperto Ellis LOC: [facility] U#:[id number] AGE/SX: 48/M ROOM: RE07/25/[address]: Good Fish MD : 1975 BED: DIS: 07/25/2024 SPEC #: [id number] RECD: 07/25/24 12:58 STATUS: ABE RE #: [id number] JUAN: 07/25/24 09:[address]: Good Fish DEPT: Surgical Specimen RECD BY: Harriet Desir ENTERED: 07/25/24 13:00 SP TYPE: PROST OTHR DR: Siri Ram Tissues: 1 - PROSTATE NEEDLE BIOPSY 2 - PROSTATE NEEDLE BIOPSY 3 - PROSTATE NEEDLE BIOPSY 4 - PROSTATE NEEDLE BIOPSY 5 - PROSTATE NEEDLE BIOPSY 6 - PROSTATE NEEDLE BIOPSY 7 - PROSTATE NEEDLE BIOPSY 8 - PROSTATE NEEDLE BIOPSY 9 - PROSTATE NEEDLE BIOPSY 10 - PROSTATE NEEDLE BIOPSY 11 - PROSTATE NEEDLE BIOPSY 12 - PROSTATE NEEDLE BIOPSY Procedures: GROSS AND MICRO LEVEL 4 Comments: [id number]
== END 2024-07-25 09:23 | disposition home or self-care (01) ==
LOC: LBN 09:22
PROVIDERS: PCP Family Medicine; Visit Provider Urology
DX: C61 Malignant neoplasm of prostate (principal); R97.20 Elevated prostate specific antigen [PSA]
CPT/HCPCS: 88305

== ENCOUNTER 2024-09-21 08:32 | Outpatient (CLI) | payer BC, SELFPAY ==
[2024-09-21 09:11] LABS: Abs Immature Grans 0.10 10^3/uL (0.0-0.06); HCT 46.5 % (40.0-50.0); HGB 14.6 g/dL (13.5-17.5); Immature Grans % 0.8 %; MCH 26.0 pg (27.0-33.0); MCHC 31.4 % (32.0-36.0); MCV 83 fL (80-95); MPV 9.9 fL (8.0-11.0); Platelet Count 360 10^3/uL (130-400); RBC 5.61 10^6/uL (4.36-5.78); RDW 14.2 % (11.8-14.1); RDW-SD 42.5 fL; WBC 12.09 10^3/uL (4.4-10.8)
[2024-09-21 09:16] LABS: INR 1.0 (0.9-1.1); Prothrombin Time 9.7 sec (9.1-11.1)
[2024-09-21 12:19] LABS: ALT 77 U/L (16-63); AST 31 U/L (15-37); Albumin 3.6 g/dL (3.4-5.0); Alkaline Phosphatase 148 U/L (46-116); Anion Gap 9.1 mmol/L (3-11); BUN 24 mg/dL (7-18); Bilirubin, Total 0.4 mg/dL (0.2-1.0); CO2 26.9 mmol/L (21.0-32.0); Calcium 9.9 mg/dL (8.5-10.1); Calculated LDL 79 mg/dL (<100); Chloride 102 mmol/L (98-107); Cholesterol 185 mg/dL (<200); Estimated GFR 75.06 (mL/min/1.73m2); Glucose 137 mg/dL (74-106); HDL Cholesterol 45 mg/dL (>or=40); Potassium 4.4 mmol/L (3.5-5.1); Sodium 138 mmol/L (136-145); Total Protein 7.7 g/dL (6.4-8.2); Triglyceride 306 mg/dL (<150)
== END 2024-09-21 08:33 | disposition home or self-care (01) ==
LOC: LBO 08:32
PROVIDERS: PCP Family Medicine; Visit Provider Specialist/Technologist Athletic Trainer
DX: Z94.1 Heart transplant status (principal)
CPT/HCPCS: 36415; 80053; 80061; 80195; 85025; 85610

== ENCOUNTER 2024-09-25 12:32 | Outpatient (CLI) | payer BC, SELFPAY ==
[2024-09-25 09:38] LABS: Abs Immature Grans 0.06 10^3/uL (0.0-0.06); HCT 45.1 % (40.0-50.0); HGB 14.2 g/dL (13.5-17.5); Immature Grans % 0.5 %; MCH 25.7 pg (27.0-33.0); MCHC 31.5 % (32.0-36.0); MCV 82 fL (80-95); MPV 9.6 fL (8.0-11.0); Platelet Count 313 10^3/uL (130-400); RBC 5.52 10^6/uL (4.36-5.78); RDW 14.3 % (11.8-14.1); RDW-SD 41.4 fL; WBC 12.03 10^3/uL (4.4-10.8)
[2024-09-25 09:57] LABS: ALT 58 U/L (16-63); AST 22 U/L (15-37); Albumin 3.4 g/dL (3.4-5.0); Alkaline Phosphatase 140 U/L (46-116); Anion Gap 11.8 mmol/L (3-11); BUN 24 mg/dL (7-18); Bilirubin, Total 0.4 mg/dL (0.2-1.0); CO2 21.2 mmol/L (21.0-32.0); Calcium 9.6 mg/dL (8.5-10.1); Chloride 102 mmol/L (98-107); Estimated GFR 83.32 (mL/min/1.73m2); Glucose 149 mg/dL (74-106); Potassium 4.3 mmol/L (3.5-5.1); Sodium 135 mmol/L (136-145); Total Protein 7.4 g/dL (6.4-8.2)
== END 2024-09-25 12:33 | disposition home or self-care (01) ==
LOC: LBO 12:39
PROVIDERS: PCP Family Medicine; Visit Provider Specialist/Technologist Athletic Trainer
DX: Z94.1 Heart transplant status (principal)
CPT/HCPCS: 36415; 80053; 80195; 85025

== ENCOUNTER 2025-02-28 11:06 | Outpatient (CLI) | payer BC, SELFPAY | END 2025-02-28 11:07 | disposition home or self-care (01) | LOC: LBO 11:06 | PROVIDERS: PCP Family Medicine; Visit Provider Radiology Radiation Oncology | DX: C61 Malignant neoplasm of prostate (principal) | CPT/HCPCS: 36415; 84153 ==